=== PATIENT | male | born 1960 | race Caucasian/White ===

== ENCOUNTER 2020-10-02 01:17 | Outpatient (CLI) | payer BC, SELFPAY ==
[2020-10-02 19:31] LABS: SARS-CoV-2 RNA PCR Negative
== END 2020-10-02 01:18 | disposition home or self-care (01) ==
LOC: ANHCOVIDDT 01:17
PROVIDERS: PCP Family Medicine; Visit Provider Internal Medicine Gastroenterology
DX: Z01.812 Encounter for preprocedural laboratory examination (principal); Z20.828 Contact with and (suspected) exposure to other viral communicable diseases
CPT/HCPCS: 87635; C9803; U0003

== ENCOUNTER 2020-10-04 00:19 | Day surgery (SDC) | payer BC, SELFPAY ==
[2020-09-23 09:15] VITALS: BMI 26.6
--- NOTE | 2020-10-04 09:43 | WPDANESEPPF ---
Anes - Initial Pre Proc Eval Procedure: Operation Date: 10/04/20 12:00 Proposed Procedures p Screening Colonoscopy - Tutu Gaines DO Date/Time: 10/04/20 09:43 Surgeon: Tutu Gaines DO Pre Op Diagnosis: Neoplasm Screening Patient Data Age: 60 Gender: M Height: 1.7 m Weight: 77 kg Allergies Allergy/AdvReac Type Severity Reaction Status Date / Time No Known Allergies Allergy Verified 10/04/20 10:37 Home Medications Medication Instructions Recorded Confirmed Type tadalafil 20 mg tablet 20 mg PO DAILY PRN #18 tablet MDD 1 08/10/20 09/23/20 Rx [id number]-sjqttszuyplbz-xzxhywtw 1 tablet PO Q6H PRN 08/16/20 09/23/20 History 50 mg-325 mg-40 mg tablet fluticasone propionate [Flonase] 2 spray INTRANASAL DAILY 09/23/20 09/23/20 History Patient hx anesthesia problems: none Family hx anesthesia problems: none PMFSH Past Medical History Medical History (Updated 10/04/20 @ 11:26 by Tutu Gaines DO) Acute mucoid otitis media of both ears Adenomatous colon polyp Anxiety Benign paroxysmal positional vertigo of right ear BPV (benign positional vertigo) Erectile dysfunction Ocular migraine Tobacco abuse Surgical History Surgical History (Updated 10/04/20 @ 11:25 by Tutu Gaines DO) History of skin surgery Hx of colonoscopy Family History Family History Mother Carcinoma of colon Father Family history of lung cancer Social History Social History Smoking packs per day: 1 Smoking cigarettes per day: 20.0 Years smoked: 45 Smoking pack-years: 45.00 Smoking status: Current every day smoker Tobacco type: cigarettes Second hand tobacco smoke exposure: Yes Additional smoking assessment comments: consumes 1 pack of cigarettes daily Alcohol intake: current Drinks per week: 1 Substance use: never Substance use type: does not use Living arrangements: with family Spiritual care concerns: No Anes - Eval Final PreProcedure Day of Procedure 10/04/20 09:43 Patient weight: overweight Heart: regular rate and rhythm Lungs: clear to auscultation and normal air movement Airway: Mallampati scale class II Neurological: alert and oriented Last oral intake: >/= 8 hours ASA classification: III Emergent: no Anesthetic plan: proceed Anesthesia type and monitoring: general GIVS and standard monitoring Informed Consent: The patient's anesthetic plan and its attendant risks and benefits were discussed with the patient/family/POA. Questions were solicited and answers provided to the satisfaction of the patient/family/POA.
[2020-10-04 10:40] VITALS: BP 128/89; PULSE 88; RESP 18; TEMP 36.3; O2SAT 96; BMI 25.6
[2020-10-04] MEDS: LACTATED RINGERS 1,000 ML 150 ML IV CONT (10:52)
--- NOTE | 2020-10-04 11:26 | WPDGIPROGNO ---
Subjective Date/time seen: 10/04/20 11:26 Objective Data Vital Signs Vital Signs: Vital Signs - 24 hr 10/04/20 10:40 Temperature 36.3 C L Pulse Rate 88 Respiratory Rate 18 Blood Pressure 128/89 Pulse Oximetry 96 Meds/Results Medications: Active Medications Generic Name Dose Route Start Last Admin Trade Name Freq PRN Reason Stop Dose Admin Lactated Ringer's 1,000 mls @ 150 mls/hr 10/04/20 09:45 10/04/20 10:52 Lr - Lactated Ringers Iv IV CONT 150 mls/hr .[id number] SONI Administration
--- NOTE | 2020-10-04 11:26 | PM.IMHP ---
H&P: HPI History of Present Illness Date/Time: 10/04/20 11:26 Chief Complaint: Colonoscopy Narrative: Reason for visit: Colonoscopy This pleasant gentleman seen at request of Primary. Imp: Screening and surveillance colonoscopy. H/O of adenomatous colon polyps. [facility] colon cancer. Hepatic steatosis. Acute mucoid otitis media of both ears Adenomatous colon polyp Anxiety Benign paroxysmal positional vertigo of right ear BPV (benign positional vertigo) Erectile dysfunction Ocular migraine Tobacco abuse Rec: Colonoscopy. History: [facility] colon cancer. History of adenomatous colon polyps. Here for colonoscopy. PE: HEENTN: Neg. HRRR Lungs: CTA Abd: soft Neuro: non-focal REJI: negative skin: Warm and dry MS: Normal Review of Systems Review of Systems: All systems reviewed & are unremarkable except as noted in HPI and below PMFSH Past Medical History Medical History (Updated 10/04/20 @ 11:26 by Tutu Gaines DO) Acute mucoid otitis media of both ears Adenomatous colon polyp Anxiety Benign paroxysmal positional vertigo of right ear BPV (benign positional vertigo) Erectile dysfunction Ocular migraine Tobacco abuse Surgical History Surgical History (Updated 10/04/20 @ 11:25 by Tutu Gaines DO) History of skin surgery Hx of colonoscopy Family History Family History Mother Carcinoma of colon Father Family history of lung cancer Social History Social History Smoking packs per day: 1 Smoking cigarettes per day: 20.0 Years smoked: 45 Smoking pack-years: 45.00 Smoking status: Current every day smoker Tobacco type: cigarettes Second hand tobacco smoke exposure: Yes Additional smoking assessment comments: consumes 1 pack of cigarettes daily Alcohol intake: current Drinks per week: 1 Substance use: never Substance use type: does not use Living arrangements: with family Spiritual care concerns: No Meds Home Medications and Allergies Home Medications Medication Instructions Recorded Confirmed Type tadalafil 20 mg tablet 20 mg PO DAILY PRN #18 tablet MDD 1 08/10/20 09/23/20 Rx [id number]-xtcyinzpvwpax-tcgbiiuo 1 tablet PO Q6H PRN 08/16/20 09/23/20 History 50 mg-325 mg-40 mg tablet fluticasone propionate [Flonase] 2 spray INTRANASAL DAILY 09/23/20 09/23/20 History Allergies Allergy/AdvReac Type Severity Reaction Status Date / Time No Known Allergies Allergy Verified 10/04/20 10:37 Vital Signs Vital Signs - 24 hr 10/04/20 10:40 Temperature 36.3 C L Pulse Rate 88 Respiratory Rate 18 Blood Pressure 128/89 Pulse Oximetry 96
[2020-10-04 12:45] VITALS: BP 82/48; PULSE 68; RESP 18; O2SAT 94
[2020-10-04 12:55] VITALS: BP 133/87; PULSE 56; RESP 17; O2SAT 97
[2020-10-04 13:05] VITALS: BP 130/84; PULSE 62; RESP 18; O2SAT 99
--- NOTE | 2020-10-04 13:22 | SUR.PHASEII ---
9412 DR. MCCONNELL'S OFFICE CALLED WITH REFERRAL FROM DR. ZENDEJAS OF [facility]. SPOKE WITH BHARAT AND REFERRAL DOCUMENATION FAXED TO DR. MCCONNELL'S OFFICE ALONG WITH PATIENT'S PHONE NUMBER GIVEN.
== END 2020-10-04 13:15 | disposition home or self-care (01) ==
PROVIDERS: PCP Family Medicine; Visit Provider Internal Medicine Gastroenterology
PROC: 0DJD8ZZ Inspection of Lower Intestinal Tract, Via Natural or Artificial Opening Endoscopic (ICD-10-PCS; CPT 45378; principal; 2020-10-04 12:00)
DX: Z12.11 Encounter for screening for malignant neoplasm of colon (principal); D12.2 Benign neoplasm of ascending colon; D12.4 Benign neoplasm of descending colon; K63.5 Polyp of colon; K64.8 Other hemorrhoids; K57.30 Diverticulosis of large intestine without perforation or abscess without bleeding; Z80.0 Family history of malignant neoplasm of digestive organs; N52.9 Male erectile dysfunction, unspecified; F17.210 Nicotine dependence, cigarettes, uncomplicated
CPT/HCPCS: 45380; 45385; 88305; J2704; J7120

== ENCOUNTER 2022-01-23 13:31 | Outpatient (CLI) | payer BC, SELFPAY ==
--- NOTE | ~2022-01-23 | CT_ITS ---
EXAMINATION: CT lung screening EXAM DATE: 01/23/2022 13:56 INDICATION: Z72.0 - Tobacco use . TECHNIQUE: Spiral low dose CT of the chest without contrast. Axial, coronal and sagittal images were reviewed. The dose-length product (DLP) for this examination was 120.49 mGy-cm. The exposure was t ailored according to patient size (auto mA exposure control), and iterative reconstruction (ASIR) was used as additional dose reduction technique. There is no prior study for comparison. FINDINGS: There is a 2 cm segment of trachea which is narrowed in the transverse dimension, could b e sequela from prior prolonged intubation if there is such history. There is small amount of endobron chial debris. There is no mediastinal, hilar or axillary lymphadenopathy. There are no pleural or pericardial effusions. There is no pneumothorax. Heart normal in size. There is moderate allen ry arterial calcification, arterial sclerosis. There is 5 cm right renal cyst. There is a 2.5 cm left adrenal gland adenoma. There is thoracic spondylosis without osteoblastic or osteolytic lesions iden tified. IMPRESSION: Lung-RADS category 1, negative (<1%chance of malignancy); recommend continued LDCT screen ing in 1 year. Reviewed, dictated and finalized at location A. IMPRESSION: Lung-RADS category 1, negative (<1%chance of malignancy); recommend continued LDCT screening in 1 year.
== END 2022-01-23 13:32 | disposition home or self-care (01) ==
PROVIDERS: PCP Internal Medicine; Visit Provider Internal Medicine
DX: Z12.2 Encounter for screening for malignant neoplasm of respiratory organs (principal); Z72.0 Tobacco use
CPT/HCPCS: 71271

== ENCOUNTER 2022-02-07 10:28 | Outpatient (CLI) | payer BC, SELFPAY ==
--- NOTE | 2022-02-07 10:41 | EST_ITS ---
Patient Info Name: Eduardo Araya Age: 61 years : 1960 Gender: Male Ht: 68 in Wt: 170 lbs BSA: 1.94 m2 Technical Quality: Good Exam Date: 02/07/2022 10:53 AM Exam Location: [facility] Pulmonary Patient Status: Outpatient Admit Date: 02/07/2022 Staff Ordering Physician: Toy Harris DO Time Study Statistician: Yenny Olivera RDCS Attending Provider: DR. TRUJILLO Referring Physician: Steven LEON; Exercise Technologist: Joyce Vale CT Exercise Physician: Kamran Trujillo DO Exam Type: CA stress echo Study Info Indications R06.00 - Dyspnea, unspecified Treadmill exercise stress echocardiogram is performed. Summary 1. 1. Negative Regan exercise stress test for ischemic ST changes by ECG criteria. 2. 2. Reduced functional capacity, achieving 7 METs of workload. 3. 3. Appropriate HR response to exercise. 4. 4. Appropriate HR recovery at 1 minute post exercise. 5. 5. Negative stress echocardiogram for ischemia by wall motion analysis. 6. 6. Incidentally noted dilated aortic root at 5.1 cm. 7. 7. Patient informed of the above results. Stress Echo Findings Left Ventricle Appropriate increase in LV endocardial thickening with systole. Appropriate augmentation of contractility with systole. No wall motion abnormality. Left Ventricle Normal LV systolic function, no wall motion abnormality. Aorta Incidentally, aortic root is dilated at 5.1 cm. Protocol: Regan Stress ECG Details Stage: REST Duration (min): 0 min : 56 sec Speed (mph): 0.0 Grade (%): 0 HR (bpm): 67 SBP (mmHg): 132 DBP (mmHg): 84 METS: --- Stage: REST Duration (min): 19 min : 1 sec Speed (mph): 0.0 Grade (%): 0 HR (bpm): 68 SBP (mmHg): 132 DBP (mmHg): 84 METS: --- Stage: STAGE 1 Duration (min): 1 min : 0 sec Speed (mph): 1.7 Grade (%): 10 HR (bpm): 89 SBP (mmHg): 132 DBP (mmHg): 84 METS: --- Stage: STAGE 1 Duration (min): 2 min : 0 sec Speed (mph): 1.7 Grade (%): 10 HR (bpm): 104 SBP (mmHg): 132 DBP (mmHg): 84 METS: --- Stage: STAGE 1 Duration (min): 3 min : 0 sec Speed (mph): 1.7 Grade (%): 10 HR (bpm): 116 SBP (mmHg): 179 DBP (mmHg): 88 METS: --- Stage: STAGE 2 Duration (min): 1 min : 0 sec Speed (mph): 2.5 Grade (%): 12 HR (bpm): 126 SBP (mmHg): 179 DBP (mmHg): 88 METS: --- Stage: STAGE 2 Duration (min): 2 min : 0 sec Speed (mph): 2.5 Grade (%): 12 HR (bpm): 144 SBP (mmHg): 176 DBP (mmHg): 97 METS: --- Stage: STAGE 2 Duration (min): 2 min : 1 sec Speed (mph): 0.0 Grade (%): 0 HR (bpm): 144 SBP (mmHg): 176 DBP (mmHg): 97 METS: --- Stage: RECOVERY Duration (min): 0 min : 58 sec Speed (mph): 0.0 Grade (%): 0 HR (bpm): 117 SBP (mmHg): 176 DBP (mmHg): 97 METS: --- Stage: RECOVERY Duration (min): 1 min : 58 sec Speed (mph): 0.0 Grade (%): 0 HR (bpm): 97 SBP (mmHg): 176 DBP (mmHg): 97 METS: ---
== END 2022-02-07 10:29 | disposition home or self-care (01) ==
PROVIDERS: PCP Internal Medicine; Visit Provider Internal Medicine
DX: R06.00 Dyspnea, unspecified (principal)
CPT/HCPCS: 93351

== ENCOUNTER → 2022-12-22 10:10 | Outpatient (CLI) | payer BC, SELFPAY ==
--- NOTE | ~2022-12-22 | XR_ITS ---
Left Knee Technique: AP and lateral views were obtained. Clinical History: Pain Findings: No fracture or dislocation is seen. Osseous alignment is anatomic. There is moderate tricom partmental degenerative change. Soft tissues are unremarkable. No joint effusion is seen. Impression: Moderate tricompartmental degenerative change. Reviewed, dictated and finalized at location . Impression: Moderate tricompartmental degenerative change.
== END ==
PROVIDERS: PCP Family Medicine
DX: M25.562 Pain in left knee (principal); M17.12 Unilateral primary osteoarthritis, left knee
CPT/HCPCS: 73560

== ENCOUNTER 2025-07-03 15:54 | Observation (INO) | payer MEDICARE, SELFPAY ==
--- OUTSIDE RECORDS SUMMARY | 2022-05-02 12:38 | XMS_ITS | Encounter Summary ---
Author Organization [facility] Address [address] [place] [address] Phone Care Team Providers Care Chief Counsel Name Role Phone Toy Harris Primary Care Provider [phone] Reason for Referral * (Routine) - Closed Specialty Diagnoses / Procedures Referred By Contac t Referred To Contact Diagnoses Encounter for other preprocedural examination Thoracoabdominal 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 Procedures Pulmonary Function Test -[facility]FT [facility]- [facility]; Standard; Spirometry, Spirometry w/bronchodilator, DLCO and Lung Volumes Vinh Pereyra MD Phone: tel: fax: Referral ID Status Reason Start Date Expiration Date Visits Re quested Visits Authorized [id number] Closed 04/18/2022 05/18/2023 1 1 Reason for Visit * (Routine) - Closed Specialty Diagnoses / Procedures Referred By Contac t Referred To Contact Diagnoses Encounter for other preprocedural examination Thoracoabdominal 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 Procedures Pulmonary Function Test -[facility]FT [facility]- [facility]; Standard; Spirometry, Spirometry w/bronchodilator, DLCO and Lung Volumes Vinh Pereyra MD Phone: tel: fax: Referral ID Status Reason Start Date Expiration Date Visits Re quested Visits Authorized [id number] Closed 04/18/2022 05/18/2023 1 1 Encounter Details Date Type Department Care Team (Latest Contact Info) Description 05/02/2022 12:38 PM CDT Hospital Encounter [facility] Medicine PFT Lab [address] [facility] [facility] [address] [place] [id number] Encounter for other preprocedural examination; Thoracoabdominal 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 Social History Tobacco Use Types Packs/Day Years Used Date Smoking Tobacco: Former Cigarettes 1 50 0 10/08/1974 - 05/11/2022 Vaping Smokeless Tobacco: Never Alcohol Use Standard Drinks/Week Comments Yes 0 (1 standard drink = 0.6 oz pur e alcohol) occasional AUDIT-C Answer Date Recorded Q1: How often do you have a drink containing alc ohol? Monthly or less 03/18/2025 Q2: How many drinks containi ng alcohol do you have on a typical day when you are drinking? 1 or 2 03/18/2025 Frequency of Binge Drinking Not on file 03/08 PHQ-2 Answer Date Recorded PHQ-2 Total Score (If total score is 3 or more points, staff should administer the PHQ-9) 0 09/17/2024 Personal Safety Answer Date Recorded Have you ever been in or are you currently in a harmful physical or emotional relationship or is someone making you feel afraid or unsafe? Denies 02/29/2024 Sex and Gender Information Value Date Recorded Sex Assigned at Not on file Legal Sex Male 1:54 PM CDT Gender Identity Not on file Sexual Orientation Not on file documented as of this encounter Functional Status * AUDIT-C Score Answer Date of Assessment Author 4 02/29/2024 5:50 AM Eusebia Zarco RN * Question Answer Date of Assessment Author Q1: How often do you have a drink containing alcohol? Monthly or less 03/18/2025 9:18 AM Alaina Leonard MA Q2: How many drinks containing alcohol do you have on a typical day when you are drinking? 1 or 2 03/18/2025 9:18 AM Alaina Leonard MA Q3: How often do you have six or more drinks on one occasion? Less than monthly 02/29/2024 5:50 AM CDT Eusebia Funes RN documented as of this encounter Plan of Treatment Not on file documented as of this encounter Procedures Procedure Name Priority Date/Time Associated Diagnosis Comments PULMONARY FUNCTION TEST (PFT) Routine 05/02/2022 1:48 PM CDT Encounter for other preprocedural examination Thoracoabdominal 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 documented in this encounter Results * Pulmonary Function Test - (05/02/2022 1:48 PM CDT) Pathologist [facility] FVC PRE 3.48 L [facility] FVC %PRE PRED 87 % [facility] FVC POST 4.00 L [facility] FVC %POST PRED 100 % [facility] FEV1 PRE 1.22 L [facility] FEV1 %PRE PRED 39 % [facility] FEV1 POST 1.51 L [facility] FEV1 %POST PRED 48 % [facility] FEV1/FVC PRE 35.2 % [facility] FEV1/FVC POST 37.8 % [facility] FRC [address] PRE 5.[address] [facility] [address]C [address] %PRE PRED 176 % [facility] RV PRE 4.27 L [facility] RV %PRE PRED 206 % [facility] TLC PRE 7.84 L [facility] TLC %PRE PRED 126 % [facility] DLCO PRE 17.3 ml/min/mmH g [facility] DLCO %PRE PRED 72 % [facility] Anatomical Region Laterality Modality PFT 05/02/2022 12:5 4 PM CDT Narrative 05/04/2022 5:28 PM CDT SEE PDF PFT performed at:->[facility] Adult PFT Lab- [facility] Procedure:->Standard Standard:->Spirometry, Spirometry w/bronchodilator, DLCO and Lung Volumes Vinh Pereyra MD PFT ORDERABLES Final Result documented in this encounter Visit Diagnoses Diagnosis Encounter for other preprocedural examination Thoracoabdominal 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 documented in this encounter Additional Health Concerns Infection Onset Date Last Indicated Resolved Time COVID: Suspected 05/12/2022 05/12/2022 05/13/2022 3:07 AM CDT COVID: Suspected 06/06/2022 06/06/2022 06/07/2022 1:30 PM CDT documented as of this encounter Care Teams Chief Counsel Relationship Specialty Start Date End Date Toy Harris DO PCP - General Internal Medicine 04/03/22 10/25/22 documented as of this encounter
--- OUTSIDE RECORDS SUMMARY | 2024-03-22 16:30 | XMS_ITS ---
Author Organization [facility] ([address]) Address [address] [place] [address] Care Team Providers Care Records Tech Name Role Phone Berry Short MD Primary Care Provider Unavailab Dr. Isidoro Harmon Unavailable [phone] [facility], Provider Unavailable Unavailab crum Allergies Allergen (clinical drug ingredient) Drug/Non Drug Allergy documented on EMR Reaction Allergy Type Onset Date Status protamines Protamine Unknown Drug Allergy Active REASON FOR VISIT Multum To Medispan Conversion Encounter Medications Medication SIG (Take, Route, Frequency, Duration) Notes Start Date End Date Status Pramipexole Dihydrochloride 0.25 MG 1.5 tab (0.375 mg) orally 1 hour before bedtime; Duration: 30 days Active Atorvastatin Calcium 40 MG 1 tab(s) orally once a day; Duration: 30 day(s) Active Gabapentin 400 MG 1 cap(s) orally 3 times a day Active Clopidogrel Bisulfate 75 MG 1 tab(s) orally once a day; Duration: 30 day(s) Active Apixaban 5 MG as directed orally 2 times a day; Duration: 30 day(s) Active Empagliflozin 10 MG 1 tab(s) orally once a day (in the morning) Active Trelegy Ellipta 100/62.5/25 MCG 1 INHALATION PO QDAY; Duration: 30 DAY(S) *Please review and pick correct strength-formulati on from Medispan options. If intended option is not shown, discontinue and re-order from Quick Search* Active Pantoprazole Sodium 40 MG 1 tab(s) orally once a day; Duration: 30 day(s) Active Entresto 24-26 MG 1 tab(s) orally 2 times a day Active Metoprolol Succinate ER 50 MG 1 tab(s) orally once a day; Duration: 30 day(s) Active Spironolactone 25 MG 1 tab(s) orally once a day; Duration: 30 day(s) Active Tamsulosin HCl 0.4 MG 1 cap(s) orally once a day; Duration: 30 day(s) Active Encounters Encounter Location Date Provider Diagnosis [address] [address] 03/22/2024 Provider [place] Restless legs syndrome G25.81 and Polyneuropathy, unspecified G62.9 Assessments Encounter Date Diagnosis (ICD Code) Assessment Notes Treatment Notes Treatment Clinical Notes Section Notes 03/22/2024 Restless legs syndrome (ICD-10 - G25.81) 03/22/2024 Polyneuropathy, unspecified (ICD-10 - G62.9) Plan Of Treatment Medication Medication Name Sig Start Date Stop Date Notes Pramipexole Dihydrochloride 0.25 MG 1.5 tab (0.375 mg) orally 1 hour before bedtime; Duration: 30 days Gabapentin 400 MG 1 cap(s) orally 3 ti mes a day Progress Notes * ABY EduardoDOB: [birth year] (65 yo M)Acc No.[id number]:03/22/2024 Patient: Eduardo LOPEZ Provider: Guadalupe Frank :1960 A ge:63 Y S ex:Male Date:03/22/2024 Address:[address] [facility] Pcp:Berry Short MD Subjective: * Chief Complaints: * 1 . Multum To [facility] Conversion Encounter. * Medical History: * Medications: T aking Tamsulosin HCl 0.4 MG Capsule 1 cap(s) orally once a day , Taking Spironolactone 25 MG Tablet 1 tab(s) orally once a day , Taking Pantoprazole Sodium 40 MG Tablet Delayed Release 1 tab(s) orally once a day , Taking Metoprolol Succinate ER 50 MG Tablet Extended Release 24 Hour 1 tab(s) orally once a day , Taking Entresto 24-26 MG Tablet 1 tab(s) orally 2 times a day , Taking Trelegy Ellipta 100/62.5/25 MCG DPI 1 INHALATION PO QDAY , Notes to Pharmacist: *Please review and pick correct strength-formulation from Medispan options. If intended option is not shown, discontinue and re-order from Quick Search*, Taking Empagliflozin 10 MG Tablet 1 tab(s) orally once a day (in the morning) , Taking Clopidogrel Bisulfate 75 MG Tablet 1 tab(s) orally once a day , Taking Atorvastatin Calcium 40 MG Tablet 1 tab(s) orally once a day , Taking Apixaban 5 MG Tablet as directed orally 2 times a day * Allergies: P rotamine. Objective: * Vitals: Assessment: * Assessment: 1. R estless legs syndrome - G25.81 (Primary) 2 . P olyneuropathy, unspecified - G62.9 Plan: * Treatment: 2. P olyneuropathy, unspecified Continue Gabapentin Capsule, 400 MG, 1 cap(s), orally, 3 times a day. * Billing Information: * Visit Code: * Procedure Codes: * Electronic signature of Dariela MORTENSEN-Migration on 07/03/2025 at 05:18 PM CDT Sign off status: Pending * Provider: Guadalupe fish Migration Date: 03/22/2024 Generated for Aracelis marks/Cooper/Rona on: 07/03/2025 05:18 PM CDT
--- NOTE | ~2025-07-03 | XR_ITS ---
EXAMINATION: XR chest 2V DATE: 07/03/2025 16:58 INDICATION: SOA TECHNIQUE: Frontal and lateral images of the chest were obtained. COMPARISON: Chest radiograph dated 09/09/2015 FINDINGS: Heart is not enlarged. Median sternotomy wires are present. Left-sided generator leads. Stable calcified granuloma in the right upper lobe. Small opacities in the mid and lower lungs. Similar left AC separation. IMPRESSION: Small opacities in the mid and lower lungs which represents atelectasis/scarring or infiltrates. Reviewed, dictated and finalized at location Q. IMPRESSION: Small opacities in the mid and lower lungs which represents atelectasis/scarrin g or infiltrates.
[2025-07-03 15:46] VITALS: BP 118/79; PULSE 68; RESP 13; TEMP 36.4; O2SAT 97
[2025-07-03 15:57] VITALS: O2SAT 95
--- NOTE | 2025-07-03 16:37 | ECG_ITS ---
Test Date: 2025-07-03 17:02:29 Measurements Intervals [place] Rate: 60 P: 55 WA: 192 QRS: -68 QRSD: 139 T: 34 QT: 456 QTc: 456 Interpretive Statements ELECTRONIC ATRIAL PACEMAKER LEFT AXIS DEVIATION [QRS AXIS < -30] RIGHT BUNDLE BRANCH BLOCK [120+ ms QRS DURATION, UPRIGHT V1, 40+ ms S IN I/aVL/V4/V5/V6] SEPTAL MYOCARDIAL INFARCTION , PROBABLY OLD [40+ ms Q WAVE IN V1/V2] No previous ECG available for comparison Electronically Signed On 07-03-2025 19:59:26 CDT by Josue Mata M.D.
--- NOTE | 2025-07-03 16:51 | ED.SOB ---
HPI - SOB/Dyspnea General Chief Complaint: Shortness of Breath/Dyspnea Stated Complaint: SOB Time Seen by Provider: 07/03/25 16:26 History of Present Illness HPI Narrative: Patient is a 65-year-old male who presents the ER with shortness of breath. He had been on a riding lawnmower cutting his grass. When he completed the job he stopped and as he got off the mower he developed sudden dyspnea. EMS felt he was diminished in gave him nebulizer treatments which improved his shortness of breath. He had no chest pain or pressure. He had node diaphoresis/nausea/vomiting. He has not had symptoms like this previously. He has history of aortic valve replacement surgery in the past. He has not been having any recent exertional chest pain or shortness of breath. No history of coronary disease. He is anticoagulated on apixaban. He has history of COPD. Related Data Home Medications ?Medication ?Instructions ?Recorded ?Confirmed ?Last Taken ?Type fluticasone propionate 50 2 spray intranasal DAILY PRN 03/20/22 08/11/22 Unknown History mcg/actuation nasal spray,suspension apixaban 5 mg tablet 5 mg PO BID 06/28/22 08/11/22 Unknown History atorvastatin 40 mg tablet 40 mg PO DAILY 06/28/22 08/11/22 Unknown History clopidogrel 75 mg tablet 75 mg PO DAILY 06/28/22 08/11/22 Unknown History empagliflozin 10 mg tablet 10 mg PO DAILY 06/28/22 08/11/22 Unknown History fluticasone furoate 100 1 inh inhalation DAILY 06/28/22 08/11/22 Unknown History mcg/actuation blister powder for inhalation losartan 25 mg tablet 25 mg PO DAILY 06/28/22 08/11/22 Unknown History pantoprazole 40 mg granules 40 mg PO DAILY 06/28/22 08/11/22 Unknown History delayed-release for susp in packet polyethylene glycol 3350 17 gram 17 g PO DAILY 06/28/22 08/11/22 Unknown History oral powder packet spironolactone 25 mg tablet 12.5 mg PO DAILY 06/28/22 08/11/22 Unknown History umeclidinium 62.5 mcg/actuation 1 inh inhalation DAILY 06/28/22 08/11/22 Unknown History blister powder for inhalation tamsulosin 0.4 mg capsule 0.4 mg PO DAILY 08/11/22 08/11/22 Unknown History Allergies Allergy/AdvReac Type Severity Reaction Status Date / Time No Known Allergies Allergy Verified 07/03/25 15:57 Review of Systems Review of Systems: All systems reviewed & are unremarkable except as noted in HPI and below Constitutional: Constitutional: Reports no additional constitutional complaints ENT: Reports system reviewed and no additional complaints, except as documented Cardiovascular: Cardiovascular: Reports no additional cardiovascular complaints Respiratory: Respiratory: Reports no additional respiratory complaints Gastrointestinal: Gastrointestinal: Reports no additional gastrointestinal complaints Musculoskeletal: Musculoskeletal: Reports no additional musculoskeletal complaints [facility] Past Medical History Medical History Acute mucoid otitis media of both ears Adenomatous colon polyp Anxiety Benign paroxysmal positional vertigo of right ear BPV (benign positional vertigo) Erectile dysfunction Ocular migraine Right rotator cuff tear Tobacco abuse Surgical History Surgical History Aortic valve replaced History of skin surgery Hx of colonoscopy S/P aneurysm repair S/P CABG x 2 Family History Family History Mother Carcinoma of colon Father Family history of lung cancer Social History Social History (Updated 08/11/22 @ 13:29 by Windy Millan CMA) Smoking packs per day: 1 Smoking cigarettes per day: 20.0 Years smoked: 45 Smoking pack-years: 45.00 Smoking status: Current every day smoker Tobacco type: cigarettes Second hand tobacco smoke exposure: Yes Additional smoking assessment comments: consumes 1 pack of cigarettes daily Alcohol intake: current Drinks per week: 1 Alcohol use details: consumes 5 beers or liquor drinks occasionally Substance use: never Substance use type: does not use Lack of Transportation: No Lack of Food: Never True Current Housing: I Have Housing Concerned About Future Housing: No Difficulty Paying Gas/Electric Bills: No Difficulty Paying for Meds: No Currently Unemployed: No Education: High School Diploma/GED Difficulty w/ Childcare or Family Care: No Living arrangements: with family Spiritual care concerns: No Exam Narrative: GENERAL: Well-appearing, well-nourished, and in no acute distress. HEAD: Normocephalic, atraumatic. ENT: Mucous membranes moist. CHEST: Clear to auscultation. No respiratory distress. HEART: Regular rate and rhythm. Normal peripheral pulses. ABDOMEN: Soft, nontender, nondistended. EXTREMITIES: Normal range of motion. No edema. SKIN: Warm, dry, no rash. NEURO: Alert and oriented x3. PSYCH: Normal mood and affect. Course Course Emergency Course: 2011: Patient resting comfortably in without chest pain. Troponin trending upwards. We will interrogate his pacemaker. Recommended admission for observation and Cardiology evaluation. Patient reluctantly agreeable. 2016: Discussed with Dr. Flowers, recommends trending troponin and interrogating pacer. Patients primary lathe winder is Dr. Kitchen at [facility]. 2044: Accepted by hospitalist. Vital Signs Vital signs: Vital Signs Temperature 97.6 F 07/03/25 15:46 Pulse Rate 68 07/03/25 15:46 Respiratory Rate 13 07/03/25 15:46 Blood Pressure 118/79 07/03/25 15:46 Pulse Oximetry 97 07/03/25 15:46 Oxygen Delivery Room Air 07/03/25 15:46 Temperature 97.6 F 07/03/25 15:46 Pulse Rate 68 07/03/25 17:30 Respiratory Rate 14 07/03/25 17:30 Blood Pressure 101/71 07/03/25 17:30 Pulse Oximetry 93 07/03/25 17:30 Oxygen Delivery Room Air 07/03/25 15:57 MDM - SOB/Dyspnea Lab Data 07/03/25 17:12 07/03/25 17:12 Labs: Lab Results 07/03/25 07/03/25 07/03/25 Range/Units 17:12 17:12 19:25 WBC 8.1 (4.5-10.0) K/mm3 RBC 4.70 (4.6-6.20) M/mm3 Hgb 14.8 (14.0-18.0) g/dL Hct 43.5 (42.0-52.0) % MCV 92.6 (80-100) fl MCH 31.5 (26-34) pg MCHC 34.0 (32-36) g/dl RDW 12.8 (11.5-14.5) % Plt Count 132 L (150-375) k/mm3 MPV 9.0 (7.4-10.4) fl Immature Gran % (Auto) 0.4 (0-0.5) % Neut % (Auto) 81.9 H (45.5-73.1) % Lymph % (Auto) 10.4 L (18.3-44.2) % [place] % (Auto) 6.2 (2.6-8.5) % Eos % (Auto) 0.7 (0-4.4) % Baso % (Auto) 0.4 (0.2-1.2) % Lymph # (Auto) 0.84 L (0.9-3.2) K/mm3 [place] # (Auto) 0.5 (0.1-0.6) K/mm3 Eos # (Auto) 0.1 (0-0.3) K/mm3 Baso # (Auto) 0.0 (0.0-0.1) K/mm3 Abs Immat Gran (auto) 0.03 (0.00-0.031) K/mm3 Absolute Neuts (auto) 6.6 (1.3-6.7) K/mm3 Absolute Nucleated RBC 0.000 (0.0-0.012) K/mm3 Nucleated RBC % 0.0 (0.0-0.2) % % Immature Plt Fraction 1.7 (0.9-11.2) % PT 14.1 (11.1-14.7) Seconds INR 1.1 APTT 31.3 (22.3-36.8) Seconds Sodium 137 (137-145) mmol/L Potassium 4.3 (3.4-5.0) mmol/L Chloride 107 (98-107) mmol/L Carbon Dioxide 24 (22-30) mmol/L Anion Gap 6 (4-12) mmol/L BUN 21 H (9-20) mg/dL Creatinine 0.99 (0.7-1.3) mg/dL Estim Creat Clear Calc 62 ml/min Estimated GFR > 60 (59 - ) Glucose 118 H (65-110) mg/dL Calcium 8.9 (8.4-10.2) mg/dL Total Bilirubin 0.5 (0.2-1.3) mg/dL AST 28 (17-59) U/L ALT 12 (6-50) U/L Alkaline Phosphatase 101 (38-126) U/L Troponin I 0.031 Cancelled 0.079 H* D (0.000-0.034) ng/mL NT-Pro-B Natriuret Pep 446 H (19.9-100) pg/mL Total Protein 6.9 (6.3-8.2) g/dL Albumin 4.1 (3.5-5.1) g/dL Imaging Data Radiologist's impression: ITS Impressions Chest X-Ray 07/03/25 17:01 IMPRESSION: Small opacities in the mid and lower lungs which represents atelectasis/scarring or infiltrates. ECG Data EKG #1: ECG completion date: 07/03/25 ECG completion time: 17:02 EKG Interpretation: normal rate, RBBB, left axis and other (Atrial paced) Discharge Plan Discharge Clinical Impression: Chest pain Patient Disposition: Still a Patient Condition: Stable
--- OUTSIDE RECORDS SUMMARY | 2025-07-03 17:18 | XMS_ITS | Patient Health Record ---
Author Organization [facility] [employer] [place] ([address]) Address [address] [place] [address] Care Team Providers Care Machine Room Engineer Name Role Phone Berry Short MD Primary Care Provider Dr. Isidoro Patiño Unavailable [phone] Allergies Allergen (clinical drug ingredient) Drug/Non Drug Allergy documented on EMR Reaction Allergy Type Onset Date Status protamines Protamine Unknown Drug Allergy Active Reason For Referral No Information Medications Medication SIG (Take, Route, Frequency, Duration) Notes Start Date End Date Status Empagliflozin 10 MG 1 tab(s) orally once a day (in the morning) Active Trelegy Ellipta 100/62.5/25 MCG 1 INHALATION PO QDAY; Duration: 30 DAY(S) *Please review and pick correct strength-formulati on from Medispan options. If intended option is not shown, discontinue and re-order from Quick Search* Active Atorvastatin Calcium 40 MG 1 tab(s) orally once a day; Duration: 30 day(s) Active Gabapentin 400 MG 1 cap(s) orally 3 times a day Active Clopidogrel Bisulfate 75 MG 1 tab(s) orally once a day; Duration: 30 day(s) Active Apixaban 5 MG as directed orally 2 times a day; Duration: 30 day(s) Active Spironolactone 25 MG 1 tab(s) orally once a day; Duration: 30 day(s) Active Tamsulosin HCl 0.4 MG 1 cap(s) orally once a day; Duration: 30 day(s) Active Entresto 24-26 MG 1 tab(s) orally 2 times a day Active Metoprolol Succinate ER 50 MG 1 tab(s) orally once a day; Duration: 30 day(s) Active Pramipexole Dihydrochloride 0.25 MG 1.5 tab (0.375 mg) orally 1 hour before bedtime; Duration: 90 days Active METOPROLOL 50 mg 1 tab(s) orally once a day; Duration: 30 day(s) Active PANTOPRAZOLE 40 mg 1 tab(s) orally once a day; Duration: 30 day(s) Active TRELEGY ELLIPTA 100/62.5/25 mcg 1 inhalation PO Qday; Duration: 30 day(s) Active ENTRESTO 24 mg-26 mg 1 tab(s) orally 2 times a day Active PRAMIPEXOLE DIHYDROCHLORIDE 0.25 mg 1.5 tab (0.375 mg) orally 1 hour before bedtime; Duration: 30 days Active SPIRONOLACTONE 25 mg 1 tab(s) orally once a day; Duration: 30 day(s) Active GABAPENTIN 400 mg 1 cap(s) orally 3 times a day Active TAMSULOSIN 0.4 mg 1 cap(s) orally once a day; Duration: 30 day(s) Active Pantoprazole Sodium 40 MG 1 tab(s) orally once a day; Duration: 30 day(s) Active CLOPIDOGREL 75 mg 1 tab(s) orally once a day; Duration: 30 day(s) Active EMPAGLIFLOZIN 10 mg 1 tab(s) orally once a day (in the morning) Active APIXABAN 5 mg as directed orally 2 times a day; Duration: 30 day(s) Active ATORVASTATIN 40 mg 1 tab(s) orally once a day; Duration: 30 day(s) Active Problems Problem Type SNOMED Code ICD Code Onset Dates Problem Status W/U Status Risk Notes Problem Restless legs syndrome (26985404) Restless legs syndrome (G25.81) Active confirmed Problem Chronic migraine without aura, non-refractory (disorder) (374110620667501) Migraine without aura, not intractable, without status migrainosus (G43.009) Active confirmed Problem Migraine with aura (8125009) Migraine with aura, not intractable, without status migrainosus (G43.109) Active confirmed Problem Chronic migraine without aura, non-intractable (580514927554371) Chronic migraine without aura, not intractable, without status migrainosus (G43.709) Active confirmed Problem Polyneuropathy (96016809) Polyneuropathy, unspecified (G62.9) Active confirmed Encounters Encounter Location Date Provider Diagnosis [address] [address] 12/01/2024 Isidoro Smith Restless legs synd timo G25.81 Assessments Encounter Date Diagnosis (ICD Code) Assessment Notes Treatment Notes Treatment Clinical Notes Section Notes 12/01/2024 Restless legs syndrome (ICD-10 - G25.81) Plan Of Treatment No Information Insurance Providers Payer Name Payer Address Payer Phone Subscriber Number Group Number Insured Name Patient Relationship to Insured Coverage Start Date Coverage End Date [employer] Choice POS II [address] [place] [address] [id number] Eduardo Araya Self - patient is the insured 3 Medical (General) History Medical History History ICD Code HTN HLD CAD s/p CABG Bioprosthetic aortic valve A Fib GERD VIRGIL RLS BPH Surgical History Surgery Date(Month/Year) CABG Bioprosthetic aortic valve
--- OUTSIDE RECORDS SUMMARY | 2025-07-03 17:18 | XMS_ITS | Clinical Summary ---
Author Organization [facility] Address [address] [place], [address] [address] Phone Care Team Providers Care Resin Filterer Name Role Phone Swathi Garrett MD Primary Care Provi tyson Immunizations Immunization Administration Dates Next Due Covid-19, Mrna, Lnp-s, PF, 1 00 mcg/0.5 mL Dose (Moderna) 08/12/2021 Social History Tobacco Use Types Packs/Day Years Used Date Smoking Tobacco: Never Assessed Sex and Gender Information Value Date Recorded Sex Assigned at Not on file Legal Sex Male 7:52 PM CDT Gender Identity Not on file Sexual Orientation Not on file Plan of Treatment Health Maintenance Due Date Last Done Comments Hepatitis C Virus (HCV) Screening 1960 TdaP Immunization 1959 Cologuard 2004 Immunochemical Fecal Occult Blood 2004 Pneumococcal Immunization (50+ years) (1 of 1 - PCV) 2009 Colonoscopy 10/04/2021 10/04/2020 Colorectal Cancer Screening 10/04/2021 Influenza Immunization (#1) 2025 SARS-COV-2 Immunization ( season) 2025 09/14/2021, 08/12/2021, 02/25/2021, Additional history exists Respiratory Syncytial Virus (RSV) Immunization (Adult) (1 - 1-dose 75+ series) 2034 DTaP/Tdap/Td Immunization Discontinued 01/26/2006 Zoster Immunization Completed 04/15/2018, 8 Hepatitis B Immunization Aged Out No longer eligible based on patient's age to complete this topic Human Papillomavirus (HPV) Immunization Aged Out No longer eligible based on patient's age to complete this topic Meningococcal Immunization (ACWY) Aged Out No longer eligible based on patient's age to complete this topic Rotavirus Immunization Aged Out No lo nger eligible based on patient's age to complete this topic Procedures Procedure Name Priority Date/Time Associated Diagnosis Comments COLONOSCOPY Routine 10/04/2020 from Last 3 Months or Most Recently Relevant to Health Maintenance Results * COLONOSCOPY (10/04/2020) Tutu Gaines DO PROCEDURE/MINOR SURGICAL ORDERA BLES Final Result from Last 3 Months or Most Recently Relevant to Health Maintenance Insurance [facility] [[email or web address]] Care Teams Resin Filterer Relationship Specialty Start Date End Date Swathi Garrett MD [address] [place] [address] PCP - General Family Medicine 08/19/20
--- OUTSIDE RECORDS SUMMARY | 2025-07-03 17:18 | XMS_ITS | Clinical Summary ---
Author Organization [facility] Address [address] [place] [address] Care Team Providers Care Head Of Mobile Name Role Phone Berry Short MD Primary Care Provider [phone] Allergies Active Allergy Reactions Criticality Noted Date Comments Protamine Anaphylaxis High 09/05/2023 Per [facility] records Medications apixaban (ELIQUIS) 5 MG tablet Take 1 tablet (5 mg total) by mouth 2 (two) times daily. 05/10/2023 Active atorvastatin (LIPITOR) 40 MG tablet Take 1 tablet (40 mg total) by mouth daily. 05/10/2023 Active clopidogrel (PLAVIX) 75 MG tablet Take 1 tablet (75 mg total) by mouth daily. 06/18/2023 Active empagliflozin (JARDIANCE) 10 MG tablet Take 1 tablet (10 mg total) by mouth daily. 05/10/2023 Active gabapentin (NEURONTIN) 400 MG capsule Take 1 capsule (400 mg total) by mouth 3 (three) times daily. 05/10/2023 Active pantoprazole EC (PROTONIX) 40 MG tablet Take 1 tablet (40 mg total) by mouth daily. 05/10/2023 Active spironolactone (ALDACTONE) 25 MG tablet Take 1 tablet (25 mg total) by mouth daily. 05/10/2023 Active tamsulosin (FLOMAX) 0.4 MG Cap Take 2 tablets by mouth daily. 05/10/2023 Active sacubitril-vals christiano (ENTRESTO) 24-26 MG tablet every 12 (twelve) hours. Active TRELEGY ELLIPTA 100-62.5-25 MCG/ACT AEROSOL POWDER, BREATH ACTIVATED Inhale 1 puff into the lungs daily. 08/15/2023 Active Active Problems Problem Noted Date Diagnosed Date History of colon polyps 08/13/2023 Overview (08/13/2023): Added automatically from request for surgery Family history of colon cancer 08/13/2023 Overview (08/13/2023): Added automatically from request for surgery JOHN (generalized anxiety disorder) 06/25/2023 RLS (restless legs syndrome) 06/25/2023 COPD (chronic obstructive pu lmonary disease) ([facility]) 08/15/2022 Overview (09/05/2023): COPD (FEV1 30%) current smoker Pacemaker 08/15/2022 Overview (09/05/2023): 05/29: Medtronic dual chamber PPM DDD 90-130 Atrial fibrillation ([facility]) 06/14/2022 Overview (09/05/2023): Post-op Afib - Amiodarone and Eliquis Last Assessment & Plan: Post op now AV paced Will continue Amiodarone and apixaban Continue tele VIRGIL (obstructive sleep apnea) 06/14/2022 Overview (09/05/2023): Last Assessment & Plan: Possible VIRGIL using CPAP at night Will need OP sleep study Plan for overnight oximetry tonight to assess need for O2 at home CAD, multiple vessel 05/11/2022 Overview (09/05/2023): May 202205/18: 2v CABG (SVG-OM, PDA), AVR (bio), and hemiarch replacement 06/05: LHC-> occluded L circumfex/SVG-OM graft occluded, RHC and PAC placement Last Assessment & Plan: S/p 2 V CABG (SVG- OM, PDA) on 05/18 Transferred from ICU 06/13 Continue post operative care Increase activity as tolerated PT/OT/OOB Will continue statin No BB 2/2 previous post op heart block No ASA 2/2 currently on plavix and apixaban Thoracoabdominal 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 04/18/2022 Overview (09/05/2023): BAV and aortopathy 05/18: 2v CABG (SVG-OM, PDA), AVR (bio), and hemiarch replacement - Roddy Family History Medical History Relation Comments Cancer Father Colon Cancer Mother Relation Status Comments Father Mother Alive Social History Tobacco Use Types Packs/Day Years Used Date Smoking Tobacco: Former Cigarettes 1.5 50 0 06/22/1972 - 06/22/2022 Smokeless Tobacco: Never Tobacco Cessation:Counseling Given: Not Answered Alcohol Use Standard Drinks/Week Comments Not Currently 0 (1 standard drink = 0.6 oz pur e alcohol) PHQ-2 Answer Date Recorded Patient Health Questionnaire-2 Score 0 08/13/2023 Sex and Gender Information Value Date Recorded Sex Assigned at Not on file Legal Sex Male 11:41 AM [employer] Gender Identity Not on file Sexual Orientation Not on file Last Filed Vital Signs Vital Sign Reading Time Taken Comments Blood Pressure 116/68 09/12/2023 11:25 AM [employer] Pulse 63 09/12/2023 11:25 AM [employer] Temperature 36.6 C (97.9 F) 09/12/2023 11:08 AM [employer] Respiratory Rate 20 09/12/2023 11:25 AM [employer] Oxygen Saturation 97% 09/12/2023 11:25 AM [employer] Inhaled Oxygen Concentration - - Weight 74.8 kg (165 lb) 09/05/2023 3:38 PM [employer] Height 172.7 cm (5' 8) 08/13/2023 9:03 AM [employer] Body Mass Index 25.09 08/13/2023 9:03 AM [employer] Plan of Treatment Health Maintenance Due Date Last Done Comments ASCVD LDL 1959 ASCVD Statin 1959 Hepatitis C 1977 Pneumococcal Vaccine: 50+ Years (1 of 2 - PCV) 1978 DTaP, Tdap and Td Vaccines (1 - Tdap) 01/27/2006 01/26/2006 RSV Immunization or 60+ Years (1 - Risk 60-74 years 1-dose series) 2019 PHQ-2 (Physician [place]) 10/08/2024 08/13/2023 COVID-19 Vaccine ( season) 2025 10/19/2022, 09/14/2022, 12/14/2021, Additional history exists Colorectal Cancer Screening Colonoscopy (10 Years) 09/12/2033 09/12/2023, 09/12/2023 Zoster Vaccines Completed 04/15/2018, 02/08/2018 Meningococcal B Vaccine Aged Out No l onger eligible based on patient's age to complete this topic Meningococcal Vaccine Aged Out No richie javid eligible based on patient's age to complete this topic RSV Immunizations Under 20 Months Aged Out No longer eligible based on patient's age to complete this topic Medical Devices Implanted Type Area Optical Glass Inspector Device Identifier Shelf Expiration Date Model / Serial / Lot Pacemaker Pacemaker Description:Medtronic Procedures Procedure Name Priority Date/Time Associated Diagnosis Comments COLONOSCOPY Routine 09/12/2023 9:17 AM [employer] from Last 3 Months or Most Recently Relevant to Health Maintenance Insurance MEDICAID [employer] Care Teams Head Of Mobile Relationship Specialty Start Date End Date Berry Short MD [address] [address] PCP - General FAMILY PRACTICE 06/28/23
--- OUTSIDE RECORDS SUMMARY | 2025-07-03 17:18 | XMS_ITS | Clinical Summary ---
Author Organization [facility] Medical Office Building [address] Address [address] [place] [address] Care Team Providers [facility] Name Role Phone Maria G Nichols NP Unavailable [phone] Umair Kitchen MD Unavailable Karon Munoz RN Unavailable [phone] Berry Short MD Primary Care Provider Nadine Scott RN Unavailable Fredo Delaney MD Unavailable [phone] Allergies Active Allergy Reactions Criticality Noted Date Comments Protamine Anaphylaxis,Unknown High 05/19/2022 Per [facility] records Medications sildenafiL (VIAGRA) 100 mg tablet 1/2 to 1 prn sex 10 tablet 2 06/25/20 23 Active amoxicillin 500 mg capsule 1 tablet/capsule (500 mg total) as needed Prior to dental appointments 02/06/20 24 Active aspirin 81 mg enteric coated tablet Take 1 tablet (81 mg total) by mouth daily 30 tablet 11 02/20/20 24 Active tamsulosin (FLOMAX) 0.4 mg extended release capsule TAKE 2 CAPSULES DAILY 180 capsule 1 04/14/20 24 Active rOPINIRole (REQUIP) 0.5 mg tablet Take 1 tablet (0.5 mg total) by mouth nightly Active pantoprazole DR (PROTONIX) 40 mg EC tabletIndication s:Stress Ulcer Prophylaxis Take 1 tablet (40 mg total) by mouth daily 90 tablet 3 09/17/20 24 Active dextroamphetamin e-amphetamine (ADDERALL) 20 mg tablet Take 1 tablet (20 mg total) by mouth 2 (two) times a day 0 12/30/19 25 Active traMADoL 100 mg tablet Take 100 mg by mouth 2 (two) times a day as needed 1 12/20/19 25 Active spironolactone (ALDACTONE) 25 mg tablet Take 1 tablet (25 mg total) by mouth daily 90 tablet 3 03/11/20 25 Active sacubitriL-valsa rtan (Entresto) 24-26 mg tabletIndication s:chronic heart failure Take 1 tablet by mouth 2 (two) times a day 180 tablet 3 03/11/20 25 Active metoprolol XL (Toprol XL) 25 mg extended release tablet Take 1 tablet (25 mg total) by mouth daily 90 tablet 3 03/11/20 25 026 Active empagliflozin (JARDIANCE) 10 mg tabletIndication s:Heart Failure Take 1 tablet (10 mg total) by mouth daily 90 tablet 3 03/11/20 25 Active atorvastatin (LIPITOR) 40 mg tablet Take 1 tablet (40 mg total) by mouth nightly 90 tablet 3 03/11/20 25 Active apixaban (Eliquis) 5 mg tabletIndication s:atrial fibrillation Take 1 tablet (5 mg total) by mouth 2 (two) times a day 180 tablet 3 03/11/20 25 Active tadalafiL (CIALIS) 20 mg tablet 1 q 36 hrs prn sex 10 tablet 2 03/18/20 25 Active pramipexole (MIRAPEX) 0.25 mg tablet TAKE 1 TABLET AT DINNER AND 2 TABLETS AT BEDTIME 250 tablet 1 05/14/20 25 Active fluticasone-umec lidin-vilanter (Trelegy Ellipta) 100-62.5-25 mcg inhaler USE 1 INHALATION ORALLY DAILY 60 each 5 05/18/20 25 Active gabapentin (NEURONTIN) 400 mg capsule Take 1 capsule (400 mg total) by mouth 3 (three) times a day 270 capsule 3 06/11/20 25 Active gabapentin (NEURONTIN) 400 mg capsule Take 1 capsule (400 mg total) by mouth 3 (three) times a day 90 capsule 3 04/17/20 25 025 Discontin ued(Reord er) Active Problems Problem Noted Date Diagnosed Date JOHN (generalized anxiety disorder) 06/25/2023 RLS (restless legs syndrome) 06/25/2023 Pacemaker 08/15/2022 Overview (08/15/2022): 05/29: Medtronic dual chamber PPM DDD 90-130 Cardiomyopathy, ischemic 08/15/2022 Overview (03/22/2024): 05/18: 2v CABG (SVG-OM, PDA), AVR (bio), and hemiarch replacement 05/29: Medtronic dual chamber PPM DDD 90-130 05/31: R- Thoracentesis 720 mL 06/05: LHC-> occluded L circumfex/SVG-OM graft occluded, RHC and PAC placement Post-op LVEF 30%, LVIDD 5.9 cm, septum/anteroseptum/inerior akinesis, Mod MR, PASP 50 mmHg TTE Oct 2022 LVEF 40-45% TTE February 2024 LVEF 37% COPD (chronic obstructive pulmonary disease) 05/2022 Overview (08/15/2022): COPD (FEV1 30%) current smoker Atrial fibrillation 06/14/2022 Overview (08/15/2022): Post-op Afib - Amiodarone and Eliquis Assessment & Plan (06/14/2022 9:27 AM CDT): Post op now AV paced Will continue Amiodarone and apixaban Continue tele VIRGIL (obstructive sleep apnea) 06/14/2022 Assessment & Plan (06/14/2022 10:21 AM CDT): Possible VIRGIL using CPAP at night Will need OP sleep study Plan for overnight oximetry tonight to assess need for O2 at home Chronic systolic heart failure 06/06/2022 Assessment & Plan (06/14/2022 9:22 AM CDT): HF following and added aldactone yesterday Will continue bumex Strict I/O Daily weights Continue Losartan Appreciate HF recs Assessment & Plan (06/14/2022 8:30 PM CDT): Acute heart failure likely ischemic secondary to occlusion of SVG-OM. Off inotropes and doing well, ready for discharge -Discharge recommendations: Losartan 25mg daily + spironolactone 12.5mg daily + SGLT2i approved by his insurance and torsemide 20mg daily -Consider decreasing his pacer rate from 90 to 60 or 70 prior to discharge -He should have follow up with Dr. Umair Kitchen. Initiation of beta blockers can occur as an outpatient. High degree atrioventricular block 05/15/2022 Overview (08/15/2022): 05/29: Medtronic dual chamber PPM DDD 90-130 Assessment & Plan (06/14/2022 9:23 AM CDT): Post op heart block Now s/p PPM on 05/29 Tele showing AV paced CAD, multiple vessel 05/11/2022 Overview (08/15/2022): May 202205/18: 2v CABG (SVG-OM, PDA), AVR (bio), and hemiarch replacement 06/05: LHC-> occluded L circumfex/SVG-OM graft occluded, RHC and PAC placement Assessment & Plan (06/14/2022 9:08 AM CDT): S/p 2 V CABG (SVG-OM, PDA) on 05/18 Transferred from ICU 06/13 Continue post operative care Increase activity as tolerated PT/OT/OOB Will continue statin No BB 2/2 previous post op heart block No ASA 2/2 currently on plavix and apixaban Thoracoabdominal 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 04/18/2022 Overview (08/15/2022): BAV and aortopathy 05/18: 2v CABG (SVG-OM, PDA), AVR (bio), and hemiarch replacement - Roddy Smoker Resolved Problems Problem Noted Date Diagnosed Date Resolved Date ABLA (acute blood loss anemia) 06/14/2022 08/15/2022 Assessment & Plan (06/14/2022 9:08 AM CDT): As expected post op Will continue to monitor H/H remains stable Aortic aneurysm due to and n ot concurrent with procedure 05/18/2022 06/14/2022 Thoracic aortic aneurysm without rupture 05/11/2022 08/15/2022 Overview (05/11/2022): Added automatically from request for surgery [id number] Encounter for other preprocedural examination 04/18/20 22 08/15/2022 Overview (04/18/2022): Added automatically from request for surgery [id number] ETD (Eustachian tube dysfunction), bilateral 0 08/15/2022 Assessment & Plan (02/03/2020 10:47 AM CDT): Continue Flonase 2 sprays into each nostril while looking down over the sink, do not sniff in or blow nose after use for at least 30 minutes daily to twice daily Continue Zyrtec daily Call if no continued improvement BPPV treated with left Chasity maneuver May return to work tomorrow Assessment & Plan (01/22/2020 2:59 PM CDT): Flonase 2 sprays into each nostril while looking down over the sink, do not sniff in or blow nose after use. BPPV (benign paroxysmal posi tional vertigo), left 03/05/2019 08/15/2022 Assessment & Plan (02/03/2020 10:47 AM CDT): Continue Flonase 2 sprays into each nostril while looking down over the sink, do not sniff in or blow nose after use for at least 30 minutes daily to twice daily Continue Zyrtec daily Call if no continued improvement BPPV treated with left Chasity maneuver May return to work tomorrow Assessment & Plan (01/22/2020 1:48 PM CDT): Flonase 2 sprays into each nostril while looking down over the sink, do not sniff in or blow nose after use. Take contacts out at night 64 ounces of caffeine free and soda free fluid daily Chasity maneuver performed, Post-Chasity instructions discussed and Handout provided Assessment & Plan (03/13/2019 2:59 PM CDT): Carotid doppler at your convenience Follow up if dizziness returns Assessment & Plan (03/05/2019 10:41 AM CDT): Left BPPV - Chasity maneuver performed Follow up in one week Post-Chasity instruction discussed and Handout provided Dizziness and giddiness 03/05/2019 11/0 05/2022 Assessment & Plan (01/22/2020 2:59 PM CDT): Flonase 2 sprays into each nostril while looking down over the sink, do not sniff in or blow nose after use daily for one month Take contacts out at night 64 ounces of caffeine free and soda free fluid daily Assessment & Plan (03/05/2019 12:12 PM CDT): Left BPPV - Chasity maneuver performed Follow up in one week Carotid Ultrasound MILLS (dyspnea on exertion) Cough 08/15/2022 Encounters Date Type Department Care Team Description 06/11/2025 Telephone [facility] Family Medicine at [address] [place] [address] Berry Short MD Med Refill 04/13/2025 10:15 AM CDT Office Visit [facility] Surgery [address] [facility] Office [address], [place] [address] Kameron Petty MD Infrarenal abdominal aortic aneurysm (AAA) without rupture (Primary Dx); Iliac artery aneurysm, bilateral 04/13/2025 9:30 AM CDT Ancillary Procedure [facility] Vascular Lab [address] [facility] Office [address], [place] [address] Infrarenal abdominal aortic aneurysm (AAA) without rupture; Iliac artery aneurysm 04/13/2025 8:45 AM CDT Ancillary Procedure [facility] Vascular Lab [address] [facility] Medical Office Building [address] [place] [address] Iliac artery aneurysm 04/07/2025 Orders Only [facility] Cardiology [address] [facility] 8th [place] [address] [place] [id number] Albert Singh MD from Last 3 Months Immunizations Immunization Administration Dates Next Due Influenza, Quadrivalent, Spl it, Preservative Free, Intramuscular 08/15/2023 Influenza, Trivalent, High D ose, Split, Preservative Free, Intramuscular 07/16/2024 Influenza, Unspecified 07/08/2024,2021(Deferred: Patient Refused),07/08/2022 Moderna SARS-CoV-2 Monovalen t Vaccination (12+ YRS) 12/14/2021,11/16/2020 Moderna Sars-cov-2 Bivalent Vaccine 50 Mcg/0.5 mL (12+ YRS)-Blue/Pete 09/14/2022 Pfizer SARS-CoV-2 Monovalent Vaccination (12+ Yrs) PURPLE 09/14/2021,02/25/2021 Pfizer Sars-Cov-2 Bivalent V accination (12+ YRS) 10/19/2022 RSV Vaccine, Pref, Recombina nt, Subunit, Adjuvanted, PF, IM (Arexvy) 09/18/2024 TD Preservative Free 01/26/2006 ZOSTER Recombinant 04/15/2018,02/08/2018 Surgical History Surgery Date Site/Laterality Comments CORONARY ARTERY BYPASS GRAFT 05/18/2022 repair aortic arch aneurysm , aortic root and valve replacement VASECTOMY 2011 SKIN CANCER EXCISION local COLONOSCOPY 09/12/2023 CARDIAC PACEMAKER PLACEMENT 05/29/2022 Medtronic CARDIAC CATHETERIZATION 06/05/2022 denies stents CARDIAC CATHETERIZATION 05/04/2022 denies stents HERNIA REPAIR 02/29/2024 Medical History Medical History Date Comments VIRGIL (obstructive sleep apnea) sherwood s CPAP but unable to tolerate Cancer (HCC) skin- surgery on ly no chemo/radiation AAA (abdominal aortic aneurysm) thoracic CAD, multiple vessel 05/11/2022 High degree atrioventricular block 05/15/2022 GERD (gastroesophageal reflux disease) takes pantoprazole but currently out as of 5/15/24 Hypertension COPD (chronic obstructive pu lmonary disease) only uses Trellegy RLS (restless legs syndrome) History of shingles Shortness of breath on exertion >100 ft or more than 6-7 steps or with bending over Bruises easily Wears partial dentures upper den ture only Contact lens/glasses fitting Pacemaker Cardiomyopathy from chart daryl w History of atrial fibrillation 2021 w hile in house only Family History Medical History Relation Name Comments Cancer Father Cancer Mother Anesthesia problems Neg Hx Malig Hypertension Neg Hx Malig Hyperthermia Neg Hx Pseudochol deficiency Neg Hx Relation Name Status Comments Father Mother Social History Tobacco Use Types Packs/Day Years Used Date Smoking Tobacco: Former Cigarettes 1 50 0 10/08/1974 - 05/11/2022 Vaping Smokeless Tobacco: Never Tobacco Cessation:Counseling Given: Not Answered Alcohol Use Standard Drinks/Week Comments Yes 0 [...] on file Sexual Orientation Not on file Obstetrics History Last Filed Vital Signs Vital Sign Reading Time Taken Comments Blood Pressure 138/82 04/13/2025 9:19 AM CDT Pulse 59 04/13/2025 9:19 AM CDT Temperature 36.6 C (97.8 F) 04/13/2025 9:19 AM CDT Respiratory Rate 18 04/13/2025 9:19 AM CDT Oxygen Saturation 98% 04/13/2025 9:19 AM CDT Inhaled Oxygen Concentration - - Weight 67 kg (147 lb 12.8 oz) 04/13/2025 9:19 AM CDT Height 172.7 cm (5' 7.99) 04/13/2025 9:19 AM CD T Body Mass Index 22.48 04/13/2025 9:19 AM CDT Plan of Treatment Health Maintenance Due Date Last Done Comments Hepatitis C Screening 1960 Hepatitis B Screening 1977 Pneumococcal vaccine 65+ (1 of 2 - PCV) 1978 DTaP/Tdap/Td Vaccine (1 - Tdap) 01/27/2006 6 Lung Cancer Screening 2009 Covid-19 Vaccine ( season) 2025 10/25/2023, 10/19/2022, 09/14/2022, Additional history exists Influenza Vaccine (#1) 2025 , 07/08/2024, 08/15/2023, Additional history exists Depression Screening 09/17/2025 09/17/2024, 07/16/2024, 06/25/2023, Additional history exists Fall Risk Assessment 09/17/2025 09/17/2024, 07/16/2024, 02/20/2024, Additional history exists Well Visit 65+ 09/17/2025 09/17/2024 Colon Cancer Screening-Colonoscopy 09/12/2026 09/12/2023 Prostate Cancer Screening-PSA 03/21/2027, 03/20/2024, 10/26/2022 Zoster Vaccine Completed 04/15/2018, 02/08/2018 Colon Cancer Screening-CT Colonography Discontinued 09/12/2023 Colon Cancer Screening-DNA Stool Discontinued 09/12/20 23 Colon Cancer Screening-FIT Discontinued 09/12/2023 Colon Cancer Screening-Sigmoidoscopy Discontinued 09/12/2023 Abdominal Aortic Aneurysm (A AA) Screen Completed 04/13/2025, 04/13/2025, 03/31/2024, Additional history exists Medical Devices Implanted Type Area Degreasing Wheel Operator Device Identifier Shelf Expiration Date Model / Serial / Lot [id number] Hemashield [place] 28mm 10mm 50cm Woven Soft 2 Pass Sew - [id number] - [id number] Implanted:Qty: 1 on 05/18/2022 by Vinh Pereyra MD at [facility] Graft N/A: Heart [employer] [id number] 02/04/2027 [id number] / [id number] / [id number] Medtronic Inc Capsurefix Novus 6.2fr 2mm 52cm Bipolar Screw In Implantable Latex Free 5076-52 - [id number] - [id number] Implanted:Qty: 1 on 05/29/2022 by Nikolay Rodriguez MD at [facility] Lead Left: Heart Medtronic Inc 03/29/2024 5076-52 / [id number] / Medtronic Inc Capsurefix Novus 6.2fr 2mm 58cm Bipolar Screw In Implantable 5076-58 - [id number] - [id number] Implanted:Qty: 1 on 05/29/2022 by Nikolay Rodriguez MD at [facility] Lead Left: Heart Medtronic Inc 04/06/2024 5076-58 / [id number] / Medtronic Inc Landrum S Mri Surescan 50.8x46.6mm 2 Chamber 7.4mm Pacemaker 22.5gm [id number] - [id number] - [id number] Implanted:Qty: 1 on 05/29/2022 by Nikolay Rodriguez MD at [facility] Pacemaker Left: Chest Medtronic Inc 09/04/2023 [id number] / [id number] / [employer] Konect Resilia Aortic Valved Conduit 27mm [id number] - [id number] - [id number] Implanted:Qty: 1 on 05/18/2022 by Vinh Pereyra MD at [facility] Heart [employer] 12/28/2023 [id number] / [id number] / [employer] Inc/C R Bard Mesh Surgical Mid Anatomical Synthetic Patch 3dmax 5x7in [id number] - [id number] Implanted:Qty: 1 on 02/29/2024 by Fredo Delaney MD at [facility] Right: Abdomen [employer] Inc/C R Bard [id number] 09/04/2028 [id number] / / [id number] Procedures Procedure Name Priority Date/Time Associated Diagnosis Comments US DUPLEX SCAN OF AORTA: INFERIOR VENA CAVA, ILIAC, COMPLETE Schedule Routine, Read Routine (OP Routine) 04/13/2025 9:18 AM CDT Infrarenal abdominal aortic aneurysm (AAA) without rupture Iliac artery aneurysm US LOUIE Schedule Routine, Read Routine (OP Routine) 04/13/2025 9:18 AM CDT Iliac artery aneurysm DEVICE CHECK - REMOTE Routine 04/07/2025 2:10 AM CDT PSA SCREEN Routine 03/21/2025 10:52 AM CDT Prostate cancer screening COLONOSCOPY Routine 09/12/2023 CT CHEST W WO AND ABDOMEN PELVIS W CONTRAST ED Urgent/IP Urgent 06/02/2022 10:40 AM CDT from Last 3 Months or Most Recently Relevant to Health Maintenance Results * US Duplex Scan of Aorta; Inferior Vena Cava, Iliac, Complete (04/13/2025 9:18 AM CDT) Anatomical Region Laterality Modality Vascular Ultrasound 04/13/2025 8:25 AM CDT Narrative 04/14/2025 11:09 AM CDT [facility] - Department of Vascular Surgery, Vascular Laboratory [address] [place] [address] Abdominal Aortic Duplex Ultrasound Report Patient Name: HANY ARAYA : 1960 Study Date: 04/13/2025 8:25:02 AM Gender: M Tech: TT Location: [facility] Ref Provider: NATHALIA STERLING Quality: Adequate Order Provider: NATHALIA STERLING PROCEDURES: Arterial Report: Duplex ultrasound imaging of the abdominal aorta. INDICATIONS: I71.43 Infrarenal abdominal aortic aneurysm, without rupture and I72.3 Aneurysm of iliac artery. MEASUREMENTS: Aorta Value Units Arteries Value Units Prox (Celiac Level) A/P 1.93 cm RT DENY Diameter Prox 2.78 cm Prox (Celiac Level) Trans 1.86 cm RT DENY Diameter Mid 1.89 cm Prox PSV 88.00 cm/sec RT DENY Diameter Dist 0.78 cm Mid (Infrarenal) A/P 2.57 cm RT DENY PSV Prox 31.00 cm/s Mid (Infrarenal) Trans 2.61 cm RT DENY PSV Mid 36.00 cm/s Mid PSV 75.00 cm/sec RT DENY PSV Dist 75.00 cm/s Distal (Infrarenal) A/P 4.54 cm RT EIA Diameter Prox 0.72 cm Distal (Infrarenal) Trans 4.25 cm RT EIA Diameter Mid 0.72 cm Distal PSV 84.00 cm/sec RT EIA Diameter Dist 0.80 cm RT EIA PSV Prox 97.00 cm/s RT EIA PSV Mid 136.00 cm/s RT EIA PSV Dist 119.00 cm/s LT DENY Diameter Prox 1.56 cm LT DENY Diameter Mid 0.92 cm LT DENY Diameter Dist 0.91 cm LT DENY PSV Prox 33.00 cm/s LT DENY PSV Mid 83.00 cm/s LT EIA Diameter Prox 0.62 cm LT EIA Diameter Mid 0.69 cm LT EIA Diameter Dist 0.63 cm LT EIA PSV Prox 111.00 cm/s LT EIA PSV Mid 105.00 cm/s LT EIA PSV Dist 91.00 cm/s Celiac Artery PSV 140.00 cm/s RT Prox Renal Artery PSV 209.00 cm/s Right ASSISTANT FRONT OFFICE MANAGER 66.00 cm/s Left ASSISTANT FRONT OFFICE MANAGER 97.00 cm/s Aorta Value Units Arteries Value Units FINDINGS: Performing Stave Machine Tender: Rick Shipman RVT. Study Quality: Adequate. Abdominal Aorta: Infrarenal abdominal aortic aneurysm measurin.54 by 4.25 cm. Right iliac artery aneurysm noted measuring 2.78cm. - CONCLUSIONS: 1. Abdominal aortic aneurysm, maximum diameter 4.54cm. Right iliac artery aneurysm noted measuring 2.78cm. - HISTORY: AAA and right iliac aneurysm. PREVIOUS STUDIES: Previous study on 03-31-24. DISCLAIMER: The study images and the final report will be retained in the patient chart by the Vascular Laboratory for the legally required time period. This chart constitutes the legal record of any testing performed. ATTESTATION: I have reviewed and interpreted the pertinent images and measurements of this study. I attest to the conclusions in the final report that is provided above. Electronically Signed By: Kameron BECKWITH OR 04/14/2025 10:50:13 AM CDT Procedure Note Kameron Petty MD - 04/14/2025 [facility] - Department of Vascular Surgery,Vascular Laboratory [address] [place] [address] Abdominal Aortic Duplex Ultrasound Report Patient Name: HANY ARAYA : 1960 Study Date: 04/13/2025 8:25:02 AM Gender: M Tech: Location: [facility] Provider: NATHALIA STERLING Quality: Adequate Order Provider: NATHALIA STERLING PROCEDURES: Arterial Report: Duplex ultrasound imaging of the abdominal aorta. INDICATIONS: I71.43 Infrarenal abdominal aortic aneurysm, without rupture and I72.3Aneurysm of iliac artery. MEASUREMENTS: Aorta Value Units Arteries Value Units Prox (Celiac Level) A/P 1.93 cm RT DENY Diameter Prox 2.78 cm Prox (Celiac Level) Trans 1.86 cm RT DENY Diameter Mid 1.89 cm Prox PSV 88.00 cm/sec RT DENY Diameter Dist 0.78 cm Mid (Infrarenal) A/P 2.57 cm RT DENY PSV Prox 31.00 cm/s Mid (Infrarenal) Trans 2.61 cm RT DENY PSV Mid 36.00 cm/s Mid PSV 75.00 cm/sec RT DENY PSV Dist 75.00 cm/s Distal (Infrarenal) A/P 4.54 cm RT EIA Diameter Prox 0.72 cm Distal (Infrarenal) Trans 4.25 cm RT EIA Diameter Mid 0.72 cm Distal PSV 84.00 cm/sec RT EIA Diameter Dist 0.80 cm RT EIA PSV Prox 97.00 cm/s RT EIA PSV Mid 136.00 cm/s RT EIA PSV Dist 119.00 cm/s LT DENY Diameter Prox 1.56 cm LT DENY Diameter Mid 0.92 cm LT DENY Diameter Dist 0.91 cm LT DENY PSV Prox 33.00 cm/s LT DENY PSV Mid 83.00 cm/s LT EIA Diameter Prox 0.62 cm LT EIA Diameter Mid 0.69 cm LT EIA Diameter Dist 0.63 cm LT EIA PSV Prox 111.00 cm/s LT EIA PSV Mid 105.00 cm/s LT EIA PSV Dist 91.00 cm/s Celiac Artery PSV 140.00 cm/s RT Prox Renal Artery PSV 209.00 cm/s Right ASSISTANT FRONT OFFICE MANAGER 66.00 cm/s Left ASSISTANT FRONT OFFICE MANAGER 97.00 cm/s Aorta Value Units Arteries Value Units FINDINGS: Performing Stave Machine Tender: Rick Shipman RVT. Study Quality: Adequate. Abdominal Aorta: Infrarenal abdominal aortic aneurysm measurin.54 by 4.25 cm. Rightiliac artery aneurysm noted measuring 2.78cm. - CONCLUSIONS: 1. Abdominal aortic aneurysm, maximum diameter 4.54cm. Right iliac artery aneurysm noted measuring 2.78cm. - HISTORY: AAA and right iliac aneurysm. PREVIOUS STUDIES: Previous study on 03-31-24. DISCLAIMER: The study images and the final report will be retained in the patientchart by the Vascular Laboratory for the legally required time period. This chartconstitutes the legal record of any testing performed. ATTESTATION: I have reviewed and interpreted the pertinent images and measurements ofthis study. I attest to the conclusions in the final report that is provided above. Electronically Signed By: Kameron PADILLA 04/14/2025 10:50:13 AM CDT us Nathalia Sterling NP IMG US PROCEDURES Final Result * US LOUIE (04/13/2025 9:18 AM CDT) Anatomical Region Laterality Modality Vascular N/A Ultrasound 04/13/2025 8:27 AM CDT Narrative 04/14/2025 11:09 AM CDT [facility] - Department of Vascular Surgery, Vascular Laboratory [address] [place] [address] Lower Extremity Arterial Doppler Report Patient Name: HANY ARAYA : 1960 Study Date: 04/13/2025 8:27:00 AM Gender: M Tech: Rick Shipman T Location: [facility] Ref Provider: NATHALIA STERLING Quality: Adequate Order Provider: NATHALIA STERLING PROCEDURES: Arterial Report: Ankle - Brachial Index Doppler exam. INDICATIONS: I72.3 Aneurysm of iliac artery. MEASUREMENTS: Right Value Units Left Value Units Rt Brachial Pressure 117 mmHg Lt Brachial Pressure 120 mmHg Rt IT ARCHITECT Pressure 124 mmHg Lt IT ARCHITECT Pressure 140 mmHg Rt DPA Pressure 132 mmHg Lt DPA Pressure 133 mmHg Rt 1st Digit Pressure 124 mmHg Lt 1st Digit Pressure 132 mmHg Rt PT LOUIE Resting 1.03 Lt PT LOUIE Resting 1.17 Rt AT LOUIE Resting 1.1 Lt AT LOUIE Resting 1.11 Rt Digit/Arm Index 1.03 Lt Digit/Arm Index 1.1 Right Value Units Left Value Units FINDINGS: Performing Stave Machine Tender: Rick Shipman RVT. Right Posterior Tibial Artery Analysis: The posterior tibial waveform is multiphasic. Right Anterior Tibial Artery Analysis: The anterior tibial waveform is multiphasic. Right Digits: Normal right digit pressure and waveform. Left Posterior Tibial Artery Analysis: The posterior tibial waveform is multiphasic. Left Anterior Tibial Artery Analysis: The anterior tibial waveform is multiphasic. Left Digits: Normal left digit pressure and waveform. CONCLUSIONS: 1. The above listed Ankle/Brachial Indices at rest are within normal limits bilaterally (for reference, normal resting LOUIE is 0.9 to 1.4; LOUIE >1.4 due to non- compressible arteries is not diagnostic). 2. Bilateral Digit/Arm Indices are within normal limits (for reference, normal LEOBARDO is >0.6). HISTORY: H/o AAA. PREVIOUS STUDIES: No previous studies for comparison. DISCLAIMER: The study images and the final report will be retained in the patient chart by the Vascular Laboratory for the legally required time period. This chart constitutes the legal record of any testing performed. ATTESTATION: I have reviewed and interpreted the pertinent images and measurements of this study. I attest to the conclusions in the final report that is provided above. Electronically Signed By: Kameron BECKWITH OR 04/14/2025 10:49:43 AM CDT Procedure Note Kameron Petty MD - 04/14/2025 [facility] - Department of Vascular Surgery,Vascular Laboratory [address] [place] [address] Lower Extremity Arterial Doppler Report Patient Name: HANY ARAYA : 1960 Study Date: 04/13/2025 8:27:00 AM Gender: M Tech: Rick Shipman RVT Location: [facility] Provider: NATHALIA STERLING Quality: Adequate Order Provider: NATHALIA STERLING PROCEDURES: Arterial Report: Ankle - Brachial Index Doppler exam. INDICATIONS: I72.3 Aneurysm of iliac artery. MEASUREMENTS: Right Value Units Left Value Units Rt Brachial Pressure 117 mmHg Lt Brachial Pressure 120 mmHg Rt IT ARCHITECT Pressure 124 mmHg Lt IT ARCHITECT Pressure 140 mmHg Rt DPA Pressure 132 mmHg Lt DPA Pressure 133 mmHg Rt 1st Digit Pressure 124 mmHg Lt 1st Digit Pressure 132 mmHg Rt PT LOUIE Resting 1.03 Lt PT LOUIE Resting 1.17 Rt AT LOUIE Resting 1.1 Lt AT LOUIE Resting 1.11 Rt Digit/Arm Index 1.03 Lt Digit/Arm Index 1.1 Right Value Units Left Value Units FINDINGS: Performing Stave Machine Tender: Rick Shipman RVT. Right Posterior Tibial Artery Analysis: The posterior tibial waveform is multiphasic. Right Anterior Tibial Artery Analysis: The anterior tibial waveform is multiphasic. Right Digits: Normal right digit pressure and waveform. Left Posterior Tibial Artery Analysis: The posterior tibial waveform is multiphasic. Left Anterior Tibial Artery Analysis: The anterior tibial waveform is multiphasic. Left Digits: Normal left digit pressure and waveform. CONCLUSIONS: 1. The above listed Ankle/Brachial Indices at rest are within normallimits bilaterally (for reference, normal resting LOUIE is 0.9 to 1.4; LOUIE >1.4 due tonon- compressible arteries is not diagnostic). 2. Bilateral Digit/Arm Indices are within normal limits (for reference,normal LEOBARDO is >0.6). HISTORY: H/o AAA. PREVIOUS STUDIES: No previous studies for comparison. DISCLAIMER: The study images and the final report will be retained in the patientchart by the Vascular Laboratory for the legally required time period. This chartconstitutes the legal record of any testing performed. ATTESTATION: I have reviewed and interpreted the pertinent images and measurements ofthis study. I attest to the conclusions in the final report that is provided above. Electronically Signed By: Kameron BECKWITH OR 04/14/2025 10:49:43 AM CDT us Nathalia Sterling NP IMG US PROCEDURES Final Result * DEVICE CHECK - REMOTE (04/07/2025 2:10 AM CDT) Anatomical Region Laterality Modality Other 04/07/2025 2:10 AM CDT Narrative 04/13/2025 9:07 AM CDT Interpretation Summary: Battery and Leads (BL) Normal parameters noted on battery and lead(s) --- 11.8 yrs remaining longevity. Lead impedance, sensing, and threshold trends stable and appropriate. No short V-V intervals. Presenting Rhythm (IN) Atrial Sensing-Ventricular Sensing (-VS) --- AP//VS 60s. Arrhythmic events (AE) Nonsustained VT event(s) identified --- Since 01/06/25: 5 VT-NS detections, with 4 EGMs appearing to show NSVT, max 4 sec. Episode # 46 appears to show AT, 4 sec. Anticoagulation (AC) Patient on anticoagulant therapy Patient prescribed Apixaban (Eliquis) Transmission Information (TI) Device Summary Report Procedure Note Albert Singh MD - 04/13/2025 Interpretation Summary: Battery and Leads (BL) Normal parameters noted on battery and lead(s) --- 11.8 yrs remaininglongevity. Lead impedance, sensing, and threshold trends stable andappropriate. No short V-V intervals. Presenting Rhythm (IN) Atrial Sensing-Ventricular Sensing (-VS) --- AP//VS 60s. Arrhythmic events (AE) Nonsustained VT event(s) identified --- Since 01/06/25: 5 VT-NSdetections, with 4 EGMs appearing to show NSVT, max 4 sec. Episode # 46appears to show AT, 4 sec. Anticoagulation (AC) Patient on anticoagulant therapy Patient prescribed Apixaban (Eliquis) Transmission Information (TI) Device Summary Report Albert Singh MD [facility] Final Result * PSA screen (03/21/2025 10:52 AM CDT) [facility] PSA 2.00 < OR = 4.00 ng/mL [facility] Comment: The total PSA value from this assay system is standardized against the WHO standard. The test result will be approximately 20% lower when compared to the equimolar-standardized total PSA (Jose Luis Erwin). Comparison of serial PSA results should be interpreted with this fact in mind. This test was performed using the Siemens chemiluminescent method. Values obtained from different assay methods cannot be used interchangeably. PSA levels, regardless of value, should not be interpreted as absolute evidence of the presence or absence of disease. Blood 03/21/2025 10:5 2 AM CDT 03/21/2025 10:53 AM CDT Narrative [facility] - 03/22/2025 8:54 AM CDT FASTING:YES FASTING: YES Berry Short MD LAB BLOOD ORDERABLES Final Re sult [facility] [place] [id number] [address] [id number] * Colonoscopy (09/12/2023) Anatomical Region Laterality Modality Other Historical Provider ENDOSCOPY PROCEDURES Ana l Result * CT Chest W WO and Abdomen Pelvis W Contrast (C) (06/02/2022 10:40 AM CDT) Anatomical Region Laterality Modality Body N/A Computed Tomogra phy 06/02/2022 11:3 8 AM CDT Addenda Addendum by Kushal Betancourt MD on 07/19/2022 2:32 PM CDT Addendum made to correct the technique description. TECHNIQUE: Transaxial computed tomographic images of the chest abdomen and pelvis were obtained without and with 100 mL of Optiray 350 intravenous contrast according to angiographic protocol. No immediate complications following intravenous contrast administration. 3-D reconstructions were made at a separate workstation and saved to PACS. Dictated by: Jayden Luis M.D. The radiology attending physician has personally reviewed this study, and had reviewed and/or edited this written report and agrees with it. Electronically signed by: Kushal Betancourt M.D. Impressions 06/02/2022 6:19 PM CDT 1. Interval changes of aortic valve replacement, ascending aortic aneurysm repair with composite hemiarch graft, with patent saphenous vein coronary artery bypass graft to the posterior descending artery. 2. Complete occlusion of the saphenous vein-obtuse marginal graft, which was surgically placed just medial to the saphenous vein-posterior descending graft. 3. Likely increased extent of left ventricular infarct involving the septum, apex, and this lateral wall. 4. Increased bibasilar lower lobe consolidation, right worse than left, with foci of right basilar cavitation likely representing pneumonia secondary to aspiration and aspiration pneumonia. 5. Unchanged abdominal aortic aneurysm with extensive mural thrombus. Of note, contrast is outrun during the CT scan at the level of the common iliac arteries, which is likely indicative of poor cardiac or hemodynamic function. Critical findings discussed with LORELEI Shine by Dr. Luis at 11:15 AM on 06/02/2022. LORELEI Shine to additionally discuss findings with Dr. Pereyra. Findings were later discussed with Dr. Pereyra at 4:40 PM on 06/02/2022. Dictated by: Jayden Luis M.D. The radiology attending physician has personally reviewed this study, and had reviewed and/or edited this written report and agrees with it. Electronically signed by: Kushal Betancourt M.D. Narrative 06/02/2022 6:19 PM CDT EXAMINATION: CTA of the chest abdomen and pelvis with and without intravenous contrast. HISTORY: Aortic aneurysm status post hemiarch replacement, aortic valve replacement, and coronary artery bypass and grafting. Report of 2 vessel CABG (SVG-OM, PDA), AVR (by prostatic), and hemiarch replacement. TECHNIQUE: Transaxial computed tomographic images of the chest abdomen and pelvis were obtained without and with 100 mL of Optiray 350 intravenous contrast according to angiographic protocol. No immediate complications following intravenous contrast administration. COMPARISON: 04/03/2022. FINDINGS: Interval development of small bilateral pleural effusions with bibasilar consolidation, with small foci of cavitation in the right lung, likely representing pneumonia, which may related to aspiration. Background of severe emphysema. No pneumothorax. Right internal jugular central venous catheter terminates in the right atrium. Left internal jugular leads terminate in the right ventricle and right atrium. Postsurgical changes of bioprosthetic aortic valve replacement, hemiarch repair for aortic aneurysm, and saphenous vein coronary artery bypass graft to the posterior descending artery. Small blind-ending stump is noted just superior to the arch repair graft (series 5 image 142), which after discussion with cardiothoracic surgeon, is consistent with the distal most aspect of the hemiarch graft and cannulation site. Hypoenhancement of the subendocardium of the septal, apical, and lateral wall are consistent with infarct, increased in extent compared to the prior exam. Trace pericardial fluid. Changes of median sternotomy without signs of osseous healing at this point. Spleen is unremarkable. No focal hepatic lesion on this phase of contrast. No intra or extrahepatic biliary ductal dilatation. Gallbladder is nondistended. Pancreas is unremarkable. Adrenal glands are unchanged, with left adrenal adenoma. Kidneys are symmetric. Right renal cyst is noted. Urinary bladder is decompressed by Alves catheter. No evidence of bowel obstruction. Abdominal aortic aneurysm is not significantly changed. Contrast opacification is outrun , likely due to poor cardiac function, with nonopacification distal to the infrarenal abdominal aorta. No acute osseous abnormality. Changes of median sternotomy without evidence of healing at this point. Procedure Note Kushal Betancourt MD - 06/02/2022 EXAMINATION: CTA of the chest abdomen and pelvis with and without intravenous contrast. HISTORY: Aortic aneurysm status post hemiarch replacement, aortic valve replacement, and coronary artery bypass and grafting. Report of 2 vessel CABG (SVG-OM, PDA), AVR (by prostatic), and hemiarch replacement. TECHNIQUE: Transaxial computed tomographic images of the chest abdomen and pelvis were obtained without and with 100 mL of Optiray 350 intravenous contrast according to angiographic protocol. No immediate complications following intravenous contrast administration. COMPARISON: 04/03/2022. FINDINGS: Interval development of small bilateral pleural effusions with bibasilar consolidation, with small foci of cavitation in the right lung, likely representing pneumonia, which may related to aspiration. Background of severe emphysema. No pneumothorax. Right internal jugular central venous catheter terminates in the right atrium. Left internal jugular leads terminate in the right ventricle and right atrium. Postsurgical changes of bioprosthetic aortic valve replacement, hemiarch repair for aortic aneurysm, and saphenous vein coronary artery bypass graft to the posterior descending artery. Small blind-ending stump is noted just superior to the arch repair graft (series 5 image 142), which after discussion with cardiothoracic surgeon, is consistent with the distal most aspect of the hemiarch graft and cannulation site. Hypoenhancement of the subendocardium of the septal, apical, and lateral wall are consistent with infarct, increased in extent compared to the prior exam. Trace pericardial fluid. Changes of median sternotomy without signs of osseous healing at this point. Spleen is unremarkable. No focal hepatic lesion on this phase of contrast. No intra or extrahepatic biliary ductal dilatation. Gallbladder is nondistended. Pancreas is unremarkable. Adrenal glands are unchanged, with left adrenal adenoma. Kidneys are symmetric. Right renal cyst is noted. Urinary bladder is decompressed by Alves catheter. No evidence of bowel obstruction. Abdominal aortic aneurysm is not significantly changed. Contrast opacification is outrun , likely due to poor cardiac function, with nonopacification distal to the infrarenal abdominal aorta. No acute osseous abnormality. Changes of median sternotomy without evidence of healing at this point. IMPRESSION: 1. Interval changes of aortic valve replacement, ascending aortic aneurysm repair with composite hemiarch graft, with patent saphenous vein coronary artery bypass graft to the posterior descending artery. 2. Complete occlusion of the saphenous vein-obtuse marginal graft, which was surgically placed just medial to the saphenous vein-posterior descending graft. 3. Likely increased extent of left ventricular infarct involving the septum, apex, and this lateral wall. 4. Increased bibasilar lower lobe consolidation, right worse than left, with foci of right basilar cavitation likely representing pneumonia secondary to aspiration and aspiration pneumonia. 5. Unchanged abdominal aortic aneurysm with extensive mural thrombus. Of note, contrast is outrun during the CT scan at the level of the common iliac arteries, which is likely indicative of poor cardiac or hemodynamic function. Critical findings discussed with LORELEI Shine by Dr. Luis at 11:15 AM on 06/02/2022. LORELEI Shine to additionally discuss findings with Dr. Pereyra. Findings were later discussed with Dr. Pereyra at 4:40 PM on 06/02/2022. Dictated by: Jayden Luis M.D. The radiology attending physician has personally reviewed this study, and had reviewed and/or edited this written report and agrees with it. Electronically signed by: Kushal Betancourt M.D. Ashley Swain NP IMG CT PROCEDURES Edited R esult - Final from Last 3 Months or Most Recently Relevant to Health Maintenance Insurance [employer] OOS BLUE ACCESS OOS AETNA [facility] AETNA MEDICARE AETNA MEDICARE Advance Directives For more information, please contact: [phone] * Full Code (Latest Code Status on File) Date Activated Date Inactivated Comments 05/18/2022 6:51 PM 06/15/2022 6:20 PM Care Teams Housekeeper Hospital Relationship Specialty Start Date End Date Berry Short MD [address] [address] PCP - General Family Medicine 10/26/22 Maria G Nichols NP Nurse Practitioner Transplant 06/15/22 Umair Kitchen MD Equipment Inspector Transplant 08/03/22 Karon Munoz RN [address] [address] Heart Failure Coordinator Property Management Specialist 08/03/22 Nadine Scott RN Property Management Specialist Cardiology 02/20/24 Fredo Delaney MD [address] [address] Consulting Physician General Surgery 02/29/24
[2025-07-03 17:19] LABS: Hematocrit 43.5 % (42.0-52.0); Hemoglobin 14.8 g/dL (14.0-18.0); Immature Granulocyte Percent A 0.4 % (0-0.5); Immature Platelet Fraction Pct 1.7 % (0.9-11.2); Lymphocytes Absolute Auto 0.84 K/mm3 (0.9-3.2); Mean Corpuscular HGB Conc 34.0 g/dl (32-36); Mean Corpuscular Hemoglobin 31.5 pg (26-34); Mean Corpuscular Volume 92.6 fl (80-100); Nucleated Red Blood Cells Absolute Auto 0.000 K/mm3 (0.0-0.012); Nucleated Red Blood Cells Perc 0.0 % (0.0-0.2); Platelet Count Result 132 k/mm3 (150-375); Red Blood Count 4.70 M/mm3 (4.6-6.20); White Blood Count 8.1 K/mm3 (4.5-10.0)
[2025-07-03 17:28] LABS: Alanine Aminotransferase 12 U/L (6-50); Albumin Level 4.1 g/dL (3.5-5.1); Alkaline Phosphatase 101 U/L (38-126); Anion Gap 6 mmol/L (4-12); Aspartate Amino Transferase 28 U/L (17-59); Bilirubin,Total 0.5 mg/dL (0.2-1.3); Blood Urea Nitrogen 21 mg/dL (9-20); Calcium 8.9 mg/dL (8.4-10.2); Carbon Dioxide 24 mmol/L (22-30); Chloride 107 mmol/L (98-107); Estimated CRCL calculation 62 ml/min; Estimated Glomerular Filt Rate > 60; Glucose 118 mg/dL (65-110); Potassium 4.3 mmol/L (3.4-5.0); Sodium 137 mmol/L (137-145); Total Protein 6.9 g/dL (6.3-8.2)
[2025-07-03 17:30] VITALS: BP 101/71; PULSE 68; RESP 14; O2SAT 93
[2025-07-03 17:30] LABS: INR 1.1; Prothrombin Time 14.1 Seconds (11.1-14.7)
[2025-07-03 17:31] LABS: Partial Thromboplastin Time 31.3 Seconds (22.3-36.8)
[2025-07-03 17:40] LABS: NT Pro B Type Natriuretic Pept 446 pg/mL (19.9-100); Troponin I 0.031 ng/mL (0.000-0.034)
[2025-07-03 19:18] VITALS: BP 116/70; PULSE 60; RESP 18; O2SAT 94
--- NOTE | 2025-07-03 19:23 | ECG_ITS ---
Test Date: 2025-07-03 19:27:58 Measurements Intervals [place] Rate: 60 P: -74 AL: 200 QRS: 125 QRSD: 134 T: 27 QT: 460 QTc: 460 Interpretive Statements ELECTRONIC ATRIAL PACEMAKER RIGHT BUNDLE BRANCH BLOCK [120+ ms QRS DURATION, UPRIGHT V1, 40+ ms S IN I/aVL/V4/V5/V6] LEFT POSTERIOR FASCICULAR BLOCK [QRS AXIS > 109, INFERIOR Q] SEPTAL MYOCARDIAL INFARCTION , PROBABLY OLD [40+ ms Q WAVE IN V1/V2] Compared to ECG 07/03/2025 17:02:29 Left posterior fascicular block now present Left-axis deviation no longer present Myocardial infarct finding still present Electronically Signed On 07-03-2025 19:58:02 CDT by Josue Mata M.D.
[2025-07-03 19:56] LABS: Troponin I 0.079 ng/mL (0.000-0.034)
--- NOTE | 2025-07-03 20:33 | PC.NURSE ---
Pacemaker interrogation complete.
[2025-07-04] VITALS (9 sets, daily range): BP systolic 102–128; BP diastolic 55–67; PULSE 60–90; RESP 14–19; TEMP 36.4; O2SAT 92–97; BMI 21.6
--- NOTE | 2025-07-04 01:35 | ADMGEN ---
This patient, Eduardo Araya, was admitted to IMU Room 209-01 at 0130. Patient/family oriented to hospital policies and general routines including ID bracelet, bed and alarms, visiting hours, pain management, procedures, bathroom and other care routines, personal items, smoking policy, room service/diet, and visiting hours. Information on how to activate the Rapid Response Team has been discussed. Patient/Family are encouraged to report perceived risks to care and to ask questions if they do not understand what they are told or what they should do.
--- NOTE | 2025-07-04 01:42 | PM.IMHP ---
H&P: HPI History of Present Illness Date/Time: 07/04/25 01:42 Chief Complaint: Sudden shortness of breath Narrative: 65-year-old male with a past medical history ischemic cardiomyopathy status post 2 vessel CABG, bioprosthetic aortic valve replacement, aortoplasty, paroxysmal atrial fibrillation on chronic anticoagulation with Eliquis dual chamber pacemaker placement due to high-grade AV block and COPD who presented to the ER from home via EMS due to sudden onset of shortness of breath. Review of Systems Review of Systems: 12 systems were reviewed with pertinent positives and negatives per HPI. Except as documented in the HPI, all other systems were reviewed and are negative. [facility] Past Medical History Medical History (Updated 07/04/25 @ 02:12 by Shanna Salvador DO) Essential hypertension BPH (benign prostatic hyperplasia) COPD (chronic obstructive pulmonary disease) Former tobacco use Restless legs syndrome (RLS) Neuropathy Obstructive sleep apnea Noted postoperatively after cardiac surgery. And intolerant to CPAP Bicuspid aortic valve Thoracic ascending aortic aneurysm (03/2022) Cardiomyopathy Mixed cardiomyopathy: Patient initially had cardiomyopathy due to valvular disease and then was complicated by a thrombosis of bypass vein graft associated with his aortoplasty with subsequent ischemic cardiomyopathy with echocardiogram October 2022 demonstrated he recovered EF from 30% back up to 40-45% Right rotator cuff tear Not repaired Tobacco abuse 50 pack per year smoking history quit 2021 Erectile dysfunction Adenomatous colon polyp Ocular migraine Benign paroxysmal positional vertigo of right ear Anxiety Surgical History Surgical History (Updated 07/04/25 @ 02:06 by Shanna Salvador DO) History of tonsillectomy and adenoidectomy Status post biventricular cardiac pacemaker insertion (05/2022) History of aortic valve replacement with bioprosthetic valve (05/2022) S/P aneurysm repair S/P CABG x 2 (05/2022) Patient underwent evaluation for dyspnea on exertion was found to have bicuspid aortic valve and ascending thoracic aortic aneurysm in 2021 underwent bioprosthetic aortic valve replacement with aortoplasty and 2 vessel bypass (saphenous vein graft to obtuse marginal and saphenous vein graft to PDA with subsequent development of high-degree heart block requiring pacemaker placement, complicated by worsening heart failure and repeat heart catheterization demonstrating saphenous vein graft to obtuse marginal occlusion Hx of colonoscopy History of skin surgery Family History Family History Mother Carcinoma of colon Father Family history of lung cancer Social History Social History (Updated 07/04/25 @ 02:09 by Shanna Salvador DO) Social History: Code status: Full code Healthcare power of attorney law clerk: Ashley () Smoking packs per day: 1 Smoking cigarettes per day: 20.0 Years smoked: 45 Smoking pack-years: 45.00 Smoking status: Current every day smoker Tobacco type: cigarettes Second hand tobacco smoke exposure: Yes Smoking end date: 10/08/21 Additional smoking assessment comments: consumes 1 pack of cigarettes daily Alcohol intake: current Drinks per week: 1 Alcohol use details: consumes 5 beers or liquor drinks occasionally Substance use: never Substance use type: does not use Lack of Transportation: No Lack of Food: Never True Current Housing: I Have Housing Concerned About Future Housing: No Difficulty Paying Gas/Electric Bills: No Difficulty Paying for Meds: No Currently Unemployed: No Education: High School Diploma/GED Difficulty w/ Childcare or Family Care: No Living arrangements: with family Spiritual care concerns: No Meds Home Medications and Allergies Home Medications ?Medication ?Instructions ?Recorded ?Confirmed ?Type fluticasone propionate 50 2 spray intranasal DAILY PRN nasal 03/20/22 07/04/25 History mcg/actuation nasal congestion spray,suspension apixaban 5 mg tablet 5 mg PO BID 06/28/22 07/04/25 History atorvastatin 40 mg tablet 40 mg PO DAILY 06/28/22 07/04/25 History clopidogrel 75 mg tablet 75 mg PO DAILY 06/28/22 07/04/25 History empagliflozin 10 mg tablet 10 mg PO DAILY 06/28/22 07/04/25 History losartan 25 mg tablet 25 mg PO DAILY 06/28/22 08/11/22 History polyethylene glycol 3350 17 gram 17 g PO DAILY 06/28/22 08/11/22 History oral powder packet spironolactone 25 mg tablet 25 mg PO DAILY 06/28/22 07/04/25 History tamsulosin 0.4 mg capsule 0.4 mg PO DAILY 08/11/22 08/11/22 History pregabalin 100 mg capsule 100 mg PO TID #90 caps 09/04/22 Rx fluticasone fur. 100 mcg-umeclid 1 inh inhalation DAILY 07/04/25 07/04/25 History 62.5 mcg-vilant 25 mcg inhalat.powder (Trelegy Ellipta) gabapentin 400 mg capsule 400 mg PO TID 07/04/25 07/04/25 History metoprolol succinate 25 mg 25 mg PO DAILY 07/04/25 07/04/25 History tablet,extended release 24 hr pantoprazole 40 mg tablet,delayed 40 mg PO DAILY 07/04/25 07/04/25 History release pramipexole 0.25 mg tablet 0.25 mg PO .COMPLEX 07/04/25 07/04/25 History sacubitril 24 mg-valsartan 26 mg 1 tablet PO BID 07/04/25 07/04/25 History tablet (Entresto) Allergies Allergy/AdvReac Type Severity Reaction Status Date / Time protamine Allergy Unknown Unknown Verified 07/04/25 01:47 Vital Signs Vital Signs - 24 hr 07/03/25 15:46 07/03/25 15:57 07/03/25 17:30 Temperature 97.6 F Pulse Rate 68 68 Respiratory Rate 13 14 Blood Pressure 118/79 101/71 Pulse Oximetry 97 95 93 Oxygen Delivery Room Air Room Air 07/03/25 19:18 07/04/25 01:14 Temperature Pulse Rate 60 60 Respiratory Rate 18 18 Blood Pressure 116/70 103/67 Pulse Oximetry 94 92 Oxygen Delivery Exam Narrative: Weight 64.6 kg BMI 21.7 H&P: Results Labs Labs: Laboratory Tests 07/03/25 17:12 07/03/25 17:12 07/03/25 07/03/25 07/03/25 17:12 17:12 19:25 WBC 8.1 RBC 4.70 Hgb 14.8 Hct 43.5 MCV 92.6 MCH 31.5 MCHC 34.0 RDW 12.8 Plt Count 132 L MPV 9.0 Immature Gran % (Auto) 0.4 Neut % (Auto) 81.9 H Lymph % (Auto) 10.4 L Mccormick % (Auto) 6.2 Eos % (Auto) 0.7 Baso % (Auto) 0.4 Lymph # (Auto) 0.84 L Mccormick # (Auto) 0.5 Eos # (Auto) 0.1 Baso # (Auto) 0.0 Abs Immat Gran (auto) 0.03 Absolute Neuts (auto) 6.6 Absolute Nucleated RBC 0.000 Nucleated RBC % 0.0 % Immature Plt Fraction 1.7 PT 14.1 INR 1.1 APTT 31.3 Sodium 137 Potassium 4.3 Chloride 107 Carbon Dioxide 24 Anion Gap 6 BUN 21 H Creatinine 0.99 Estim Creat Clear Calc 62 Estimated GFR > 60 Glucose 118 H Calcium 8.9 Total Bilirubin 0.5 AST 28 ALT 12 Alkaline Phosphatase 101 Troponin I 0.031 Cancelled 0.079 H* D NT-Pro-B Natriuret Pep 446 H Total Protein 6.9 Albumin 4.1 Impressions Chest X-Ray 07/03/25 17:01 IMPRESSION: Small opacities in the mid and lower lungs which represents atelectasis/scarring or infiltrates. EKG: Multiple EKGs reviewed and personally interpreted. Below is a cardiology interpretation for most recent EKG Test Date: 2025-07-03 19:27:58 Measurements Intervals [place] Rate: 60 P: -74 CO: 200 QRS: 125 QRSD: 134 T: 27 QT: 460 QTc: 460 Interpretive Statements ELECTRONIC ATRIAL PACEMAKER RIGHT BUNDLE BRANCH BLOCK [120+ ms QRS DURATION, UPRIGHT V1, 40+ ms S IN I/aVL/V4/V5/V6] LEFT POSTERIOR FASCICULAR BLOCK [QRS AXIS > 109, INFERIOR Q] SEPTAL MYOCARDIAL INFARCTION , PROBABLY OLD [40+ ms Q WAVE IN V1/V2] Compared to ECG 07/03/2025 17:02:29 Left posterior fascicular block now present Left-axis deviation no longer present Myocardial infarct finding still present Assessment and Plan Assessment and plan (1) Acute dyspnea: Code(s): R06.00 - Dyspnea, unspecified Status: Acute (2) Elevated troponin: Code(s): R79.89 - Other specified abnormal findings of blood chemistry Status: Acute (3) Class 2 congestive heart failure: Qualifiers: Congestive heart failure type: systolic Congestive heart failure chronicity: chronic Qualified Code(s): I50.22 - Chronic systolic (congestive) heart failure Code(s): I50.9 - Heart failure, unspecified Status: Acute (4) COPD (chronic obstructive pulmonary disease): Code(s): J44.9 - Chronic obstructive pulmonary disease, unspecified Status: Acute Quality VTE Prophylaxis VTE prophylaxis: pharmacologic ordered (Continue home Eliquis.) Hospitalist MIPS Advance Care Plan I have confirmed that the patient's Advanced Care Plan is present, code status is documented, or surrogate decision maker is listed in patient medical record.: Yes Medication Reconciliation I have utilized all available resources to obtain, update and review the patients current medications (includes all prescriptions, OTC, herbals, cannabis, and nutritional supplements).: Yes
--- NOTE | 2025-07-04 02:32 | PC.NURSE ---
0220 Patients states he does not know his meds and his is in charge of his medications. He does not think she would appreciate being woken up in the middle of the night. Will attempt to call in morning for med list.
[2025-07-04 03:13] LABS: Troponin I 0.102 ng/mL (0.000-0.034)
[2025-07-04 06:03] LABS: Troponin I 0.075 ng/mL (0.000-0.034)
--- NOTE | 2025-07-04 06:49 | PM.SD2 ---
Same Day Admit/Disch: HPI History of Present Illness Chief complaint: chest pain rule out, elevated troponin Narrative: Eduardo Araya is a 65 year old male with a past medical history combined valvular and ischemic cardiomyopathy status post 2 vessel CABG, bioprosthetic aortic valve replacement, aortoplasty, paroxysmal atrial fibrillation on chronic anticoagulation with Eliquis dual chamber pacemaker placement due to high-grade AV block and COPD who presented to the ER from home via EMS due to sudden onset of shortness of breath. The patient reports that he was on the riding lawnmower and got to a part of the ER to where he disturbed more vegetation and debris than usual. Shortly thereafter he began having some mild increased shortness of breath. He denies any cough or congestion. He shortly thereafter finished mowing the yd and all still sitting on the riding lawnmower he developed acute severe shortness of breath. He could not get any air in. He denied any chest pain, diaphoresis, nausea or vomiting. He reports that he has in the past noticed episodes of increased shortness of breath while out doing yd work specifically while mowing the lawn on and off for quite some time. However he has never had episode as bad as the 1 today. He reports that he went inside in immediately stood in front of the air conditioner in tried to breathe in the cold air from the events. When he was still in distress he when out to his car in turned the air conditioner on maximum and had is mouth up to the air conditioner vent trying to force more air into his lungs. After about 10 minutes of this his convinced him to let her call the ambulance. On EMS arrival the patient reports that EMS told him that his oxygen level was low. They gave the patient a nebulizer treatment with any reported that the nebulizer treatment started giving him some significant relief. He initially did not want to come to the hospital but EMS convinced him that it would be best. He received a 2nd nebulizer treatment in route to the hospital by the time he arrived to the ER his symptoms had completely resolved. He reports that throughout this whole time he never had any chest pain. He denies any ill contacts. He has not had any fevers or chills. Patient's vital signs were stable. His initial troponin was 0.079 with a repeat of 0.102. He was admitted for observation in this setting. [facility] Past Medical History Medical History (Updated 07/04/25 @ 07:36 by Shanna Salvador DO) Essential hypertension BPH (benign prostatic hyperplasia) COPD (chronic obstructive pulmonary disease) Former tobacco use Restless legs syndrome (RLS) Neuropathy Obstructive sleep apnea Noted postoperatively after cardiac surgery. And intolerant to CPAP Bicuspid aortic valve Thoracic ascending aortic aneurysm (03/2022) Cardiomyopathy Mixed cardiomyopathy: Patient initially had cardiomyopathy due to valvular disease in conjunction with ischemic of his [place] arteries. And then was complicated by a thrombosis of bypass vein graft associated with his aortoplasty with subsequent worsening ischemic cardiomyopathy and prolonged hospital stay 1 month. Echocardiogram October 2022 demonstrated he recovered EF from 30% back up to 40-45% Right rotator cuff tear Not repaired Tobacco abuse 50 pack per year smoking history quit 2021 Erectile dysfunction Adenomatous colon polyp Ocular migraine Benign paroxysmal positional vertigo of right ear Anxiety Surgical History Surgical History (Updated 07/04/25 @ 02:06 by Shanna Salvador DO) History of tonsillectomy and adenoidectomy Status post biventricular cardiac pacemaker insertion (05/2022) History of aortic valve replacement with bioprosthetic valve (05/2022) S/P aneurysm repair S/P CABG x 2 (05/2022) Patient underwent evaluation for dyspnea on exertion was found to have bicuspid aortic valve and ascending thoracic aortic aneurysm in 2021 underwent bioprosthetic aortic valve replacement with aortoplasty and 2 vessel bypass (saphenous vein graft to obtuse marginal and saphenous vein graft to PDA with subsequent development of high-degree heart block requiring pacemaker placement, complicated by worsening heart failure and repeat heart catheterization demonstrating saphenous vein graft to obtuse marginal occlusion Hx of colonoscopy History of skin surgery Family History Family History Mother Carcinoma of colon Father Family history of lung cancer Social History Social History (Updated 07/04/25 @ 07:26 by Shanna Salvador DO) Social History: The patient smoked 1 pack of cigarettes per day for 45 years but quit in 2021. He drinks alcohol at most maybe once a month. He denies any illicit substance use. Code status: Full code Healthcare power of tax attorney: Ashley () Smoking packs per day: 1 Smoking cigarettes per day: 20.0 Years smoked: 45 Smoking pack-years: 45.00 Smoking status: Current every day smoker Tobacco type: cigarettes Second hand tobacco smoke exposure: Yes Smoking end date: 10/08/21 Alcohol intake: current Drinks per week: 1 Alcohol use details: consumes 5 beers or liquor drinks occasionally Substance use: never Substance use type: does not use Lack of Transportation: No Lack of Food: Never True Current Housing: I Have Housing Concerned About Future Housing: No Difficulty Paying Gas/Electric Bills: No Difficulty Paying for Meds: No Currently Unemployed: No Education: High School Diploma/GED Difficulty w/ Childcare or Family Care: No Living arrangements: with family Spiritual care concerns: No Same Day Admit/Disch: Med Pre-admit Medications Home Medications ?Medication ?Instructions ?Recorded ?Confirmed ?Type apixaban 5 mg tablet 5 mg PO BID 06/28/22 07/04/25 History atorvastatin 40 mg tablet 40 mg PO DAILY 06/28/22 07/04/25 History empagliflozin 10 mg tablet 10 mg PO DAILY 06/28/22 07/04/25 History spironolactone 25 mg tablet 25 mg PO DAILY 06/28/22 07/04/25 History tamsulosin 0.4 mg capsule 0.4 mg PO DAILY 08/11/22 07/04/25 History albuterol sulfate 90 mcg/actuation 2 inh inhalation Q4-6H PRN 07/04/25 Rx breath activated powder inhaler shortness of breath #1 ea aspirin 81 mg chewable tablet 81 mg PO DAILY 07/04/25 07/04/25 History (Aspirin Childrens) fluticasone fur. 100 mcg-umeclid 1 inh inhalation DAILY 07/04/25 07/04/25 History 62.5 mcg-vilant 25 mcg inhalat.powder (Trelegy Ellipta) gabapentin 400 mg capsule 400 mg PO TID 07/04/25 07/04/25 History metoprolol succinate 25 mg 25 mg PO DAILY 07/04/25 07/04/25 History tablet,extended release 24 hr pantoprazole 40 mg tablet,delayed 40 mg PO DAILY 07/04/25 07/04/25 History release pramipexole 0.25 mg tablet 0.25 mg PO .COMPLEX 07/04/25 07/04/25 History prednisone 20 mg tablet 40 mg (2 x 20 mg) PO DAILY #10 tabs 07/04/25 Rx sacubitril 24 mg-valsartan 26 mg 1 tablet PO BID 07/04/25 07/04/25 History tablet (Entresto) Review of Systems Review of Systems 12 systems were reviewed with pertinent positives and negatives per HPI. Except as documented in the HPI, all other systems were reviewed and are negative. Exam Narrative: Weight 64.6 kg BMI 21.7 Const: Other: No acute distress, well-developed well-nourished, appears stated age HENMT: Other: Mucous membranes are moist, no oral pharyngeal erythema, upper and lower dentures in place Eyes: Other: Pupils are equal and reactive, no scleral icterus, no conjunctival pallor Resp: Other: Markedly decreased breath sounds throughout all lung mackey, no increased work of breathing Cardio: Other: Regular rate, regular rhythm, 2+ bilateral radial pedal pulses GI: Other: Soft, nontender, nondistended, positive bowel sounds Skin: Other: Tanned, non jaundice Neuro: Other: Alert oriented, speech is clear, no localizing neurologic deficits noted during the course of conversation Extrem: Other: No clubbing, cyanosis or edema Psych: Other: Appropriate mood and affect, pleasant and cooperative, judgment and insight intact DS: Data Data Completed and Pending Completed studies during hospitalization: Impressions Chest X-Ray 07/03/25 17:01 IMPRESSION: Small opacities in the mid and lower lungs which represents atelectasis/scarring or infiltrates. Pending studies at discharge: None Labs on day of discharge: Labs from last 24 hours 07/04/25 07/04/25 07/03/25 05:21 02:37 19:25 WBC RBC Hgb Hct MCV MCH MCHC RDW Plt Count MPV Immature Gran % (Auto) Neut % (Auto) Lymph % (Auto) [place] % (Auto) Eos % (Auto) Baso % (Auto) Lymph # (Auto) [place] # (Auto) Eos # (Auto) Baso # (Auto) Abs Immat Gran (auto) Absolute Neuts (auto) Absolute Nucleated RBC Nucleated RBC % % Immature Plt Fraction PT INR APTT Sodium Potassium Chloride Carbon Dioxide Anion Gap BUN Creatinine Estim Creat Clear Calc Estimated GFR Glucose Calcium Total Bilirubin AST ALT Alkaline Phosphatase Troponin I 0.075 H* D 0.102 H* D 0.079 H* D NT-Pro-B Natriuret Pep Total Protein Albumin 09/26/25 09/26/25 17:12 17:12 WBC 8.1 RBC 4.70 Hgb 14.8 Hct 43.5 MCV 92.6 MCH 31.5 MCHC 34.0 RDW 12.8 Plt Count 132 L MPV 9.0 Immature Gran % (Auto) 0.4 Neut % (Auto) 81.9 H Lymph % (Auto) 10.4 L [place] % (Auto) 6.2 Eos % (Auto) 0.7 Baso % (Auto) 0.4 Lymph # (Auto) 0.84 L [place] # (Auto) 0.5 Eos # (Auto) 0.1 Baso # (Auto) 0.0 Abs Immat Gran (auto) 0.03 Absolute Neuts (auto) 6.6 Absolute Nucleated RBC 0.000 Nucleated RBC % 0.0 % Immature Plt Fraction 1.7 PT 14.1 INR 1.1 APTT 31.3 Sodium 137 Potassium 4.3 Chloride 107 Carbon Dioxide 24 Anion Gap 6 BUN 21 H Creatinine 0.99 Estim Creat Clear Calc 62 Estimated GFR > 60 Glucose 118 H Calcium 8.9 Total Bilirubin 0.5 AST 28 ALT 12 Alkaline Phosphatase 101 Troponin I Cancelled 0.031 NT-Pro-B Natriuret Pep 446 H Total Protein 6.9 Albumin 4.1 Most recent EKG:Test Date: 2025-07-03 19:27:58 Measurements Intervals [place] Rate: 60 P: -74 NC: 200 QRS: 125 QRSD: 134 T: 27 QT: 460 QTc: 460 Interpretive Statements ELECTRONIC ATRIAL PACEMAKER RIGHT BUNDLE BRANCH BLOCK [120+ ms QRS DURATION, UPRIGHT V1, 40+ ms S IN I/aVL/V4/V5/V6] LEFT POSTERIOR FASCICULAR BLOCK [QRS AXIS > 109, INFERIOR Q] SEPTAL MYOCARDIAL INFARCTION , PROBABLY OLD [40+ ms Q WAVE IN V1/V2] Compared to ECG 07/03/2025 17:02:29 Left posterior fascicular block now present Left-axis deviation no longer present Myocardial infarct finding still present DS: Summary Hospital Course Reason for hospitalization: Acute shortness of breath Hospital Course: Patient was admitted for observation after acute onset shortness of breath that resolved after nebulizer treatment. Given the patient's cardiac history troponins were checked in the ER with initial troponin being 0.039 with repeat value of 0.07 and 0 point 1 7. Patient did have hypoxia in the field at home which was likely due to prior mental exposure causing bronchospasm in this patient with chronic COPD and continued tobacco use. Given the patient's known underlying coronary artery disease this likely resulted in demand ischemia. The patient did not have any associated cardiac symptoms with the vent. His troponins trended back down to 0.75 and had no evidence of acute ischemia on telemetry monitoring. The patient is reasonable in does have established care with both primary care physician and Cardiology. After shared decision making the patient would prefer to be discharged home and will call his primary care physician and paste mixing supervisor to arrange follow-up within the next 1-2 weeks respectively. He is been given strict return instructions and verbalizes understanding. The patient will be given a script for prednisone for 5 days and a prescription for albuterol rescue inhaler with instructions on use. The patient states in the past that he has wore a face mask while mowing the lawn but he was not doing that today. It was suggested that would be a good idea to wear a mask in the future to reduce allergen exposure. Time spent discussing smoking cessation with patient: 3 to 10 minutes Status at Discharge Cognitive/behavioral status at discharge: Normal Functional status at discharge: independent ambulation Overall status at discharge: patient is back to baseline Time Spent with Patient Time attestation: Total time spent providing and/or coordinating discharge services: 50 minutes Time spent: Greater than 30 minutes Specific discharge activities: Activity as tolerated DS: Admitting Diagnosis Discharge Date 07/04/2025 Admitting Diagnosis Elevated troponin DS: Discharge Diagnosis Discharge Diagnosis (1) Ischemia due to increased oxygen demand: Code(s): I24.89 - Other forms of acute ischemic heart disease Status: Acute (2) COPD (chronic obstructive pulmonary disease): Qualifiers: COPD type: COPD with acute exacerbation Qualified Code(s): J44.1 - Chronic obstructive pulmonary disease with (acute) exacerbation Code(s): J44.9 - Chronic obstructive pulmonary disease, unspecified Status: Acute (3) Acute dyspnea: Code(s): R06.00 - Dyspnea, unspecified Status: Acute Plan Please see above under hospital course Discharge Plan Discharge Attending physician on discharge: Shanna Salvador Discharging Clinician: Shanna Salvador Anticipated Discharge Date/Time: 07/04/25 06:53 Patient Disposition: Home Activity: as tolerated Diet: heart healthy Discharge Instructions: You were admitted for acute onset shortness of breath and elevated troponin. As discussed is felt year elevated troponin is likely due to transient hypoxia from bronchospasm associated with COPD and continued tobacco use and exacerbated by environmental allergens. You will be discharged with 5 day course of prednisone to be taken by mouth once daily. He will be provided with a prescription for an albuterol inhaler. I recommend that you use the albuterol inhaler 2 puffs any time year going to do yd work where he may have recurrent exposure to allergens. You may also use it every 4-6 hours as needed if recurrent shortness of breath. He should call your paste mixing supervisor to arrange a follow-up appointment within the next 1-2 weeks. He should call your primary care physician to arrange a follow-up visit in 1 week. Return to ER immediately if you develop acute worsening shortness of breath, increased shortness of breath with activity, temperature greater than 101 that persist for greater than 48 hours. Increased leg swelling, increased shortness of breath when lying flat, chest pain, palpitations, passing out or otherwise concerned. You should stop smoking. Continued tobacco use is going to result in worsening lung function, worsening blood flow to your heart, increased risk of heart attack, stroke and sudden and many other detriments to your health. Patient Instructions: Apixaban (By mouth), Heart Failure (DC) Patient Language: Syrian Stand Alone Forms: General Discharge Information Follow-up/Referrals: Deja,Berry Butcher MD [Primary Care Provider, Unknown] - Call for Appointment Fidelina,Umair Bowers M.D. [Physician] - Call for Appointment Discharge Medications: New albuterol sulfate 90 mcg/actuation aerosol powdr breath activated 2 inh inhalation Q4-6H PRN (Reason: shortness of breath) Qty: 1 0RF prednisone 20 mg Tablet 40 mg PO DAILY Qty: 10 0RF Continued tamsulosin 0.4 mg capsule 0.4 mg PO DAILY gabapentin 400 mg capsule 400 mg PO TID pantoprazole 40 mg tablet,delayed release (DR/EC) 40 mg PO DAILY pramipexole 0.25 mg tablet 0.25 mg PO .COMPLEX Rx Instructions: 0.25 mg orally one at dinner and 2 at bedtime; metoprolol succinate 25 mg tablet extended release 24 hr 25 mg PO DAILY sacubitril-valsartan [Entresto] 24-26 mg tablet 1 tablet PO BID Cande Kennedy 100-62.5-25 mcg blister with device 1 inh INHALATION DAILY aspirin [Aspirin Childrens] 81 mg tablet,chewable 81 mg PO DAILY apixaban 5 mg tablet 5 mg PO BID atorvastatin 40 mg tablet 40 mg PO DAILY empagliflozin 10 mg tablet 10 mg PO DAILY spironolactone 25 mg tablet 25 mg PO DAILY Date of admission: 07/03/25 20:48 Primary Care Provider: Deja,Berry Butcher Admitting Provider: Shanna Salvador Attending physician on admission: Shanna Salvador Condition: Stable Quality VTE Prophylaxis VTE prophylaxis: pharmacologic ordered (Eliquis per home regimen) Hospitalist [facility] Advance Care Plan I have confirmed that the patient's Advanced Care Plan is present, code status is documented, or surrogate decision maker is listed in patient medical record.: Yes Medication Reconciliation I have utilized all available resources to obtain, update and review the patients current medications (includes all prescriptions, OTC, herbals, cannabis, and nutritional supplements).: Yes Heart Failure (Exclusion) Patient has history of Heart Transplant or Left Ventricular Assistive Device?: No IF YES, STOP HERE Heart Failure (Qualifier) Patient has current or prior documentation of LVEF less than or equal to 40%, or mod/servere depressed LVSF?: Yes IF NO, STOP HERE If Yes, Heart Failure (Qualifier) Patient was prescribed or already taking an Angiotensin-Converting Enzyme (CONCHA) Inhibitor, or Antiotensin Receptor [place] (ARB): Yes Patient was prescribed or already taking bisoprolol, carvedilol, or sustained release metoprolol succinate: Yes
[2025-07-04] MEDS: FLUTICASONE/UMECLIDIN/VILANTER 100-62.5-25 MCG ELLIPTA 1 PUFF INHALATION (07:47)
[2025-07-04] MEDS: EMPAGLIFLOZIN 10 MG TABLET PO (08:48)
[2025-07-04] MEDS: ATORVASTATIN 40 MG TABLET PO (08:48)
[2025-07-04] MEDS: APIXABAN 5 MG TABLET PO (08:48)
[2025-07-04] MEDS: ASPIRIN 81 MG CHEWABLE TABLET PO (08:48)
[2025-07-04] MEDS: TAMSULOSIN HCL 0.4 MG CAPSULE PO (08:48)
[2025-07-04] MEDS: PANTOPRAZOLE 40 MG TABLET PO (08:48)
[2025-07-04] MEDS: SACUBITRIL/VALSARTAN 24-26 MG TABLET 1 TAB PO (08:48)
[2025-07-04] MEDS: GABAPENTIN 400 MG CAPSULE PO (08:49)
[2025-07-04] MEDS: SPIRONOLACTONE 25 MG TABLET PO (08:49)
== END 2025-07-04 08:55 | disposition home or self-care (01) ==
LOC: ANHED 17:53 → ANHIMU 21:45
PROVIDERS: Admitting Provider Internal Medicine; Emergency Provider Emergency Medicine; PCP Family Medicine; Visit Provider Internal Medicine
DX: J44.1 Chronic obstructive pulmonary disease with (acute) exacerbation (principal); I24.89 Other forms of acute ischemic heart disease; I45.2 Bifascicular block; Z95.0 Presence of cardiac pacemaker; I48.0 Paroxysmal atrial fibrillation; G25.81 Restless legs syndrome; N40.0 Benign prostatic hyperplasia without lower urinary tract symptoms; I10 Essential (primary) hypertension; Z95.2 Presence of prosthetic heart valve; Z95.1 Presence of aortocoronary bypass graft; Z79.51 Long term (current) use of inhaled steroids; Z79.01 Long term (current) use of anticoagulants; Z79.02 Long term (current) use of antithrombotics/antiplatelets; Z79.84 Long term (current) use of oral hypoglycemic drugs; Z87.891 Personal history of nicotine dependence; Z86.0101 Personal history of adenomatous and serrated colon polyps; G62.9 Polyneuropathy, unspecified; Z80.0 Family history of malignant neoplasm of digestive organs; Z80.1 Family history of malignant neoplasm of trachea, bronchus and lung
CPT/HCPCS: 36415; 71046; 80053; 83880; 84484; 85025; 85055; 85610; 85730; 93005; 94640; 99285; A9270; G0378; J7512